=== PATIENT | female | born 1990 | race Caucasian/White ===

== ENCOUNTER 2025-09-29 16:02 | Outpatient (AMB) | payer OTHER, SELFPAY ==
--- NOTE | 2025-09-29 14:05 | A.OFFPC_ITS ---
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 Required: No Accompanied by: Self / Same As Patient Allergies No Known Allergies Allergy (Verified 09/29/25 14:05) Medication List - Last Reconciled 09/29/25 by RADHA Britt quetiapine 25 mg PO BEDTIME Tobacco use date assessed: 09/29/25 Dental Screening Dental Screen Date: 09/29/25 Did you have a dental visit in the last 12 months?: Yes Did you have a dental problem in the last 6 months where you did not have access to dental care?: No Was dental information given to patient?: Patient has dentist HPI HPI Comments History of Present Illness Details 35-year-old female with history of bipol ar disorder and PTSD presenting to the office today to establish care and for annual physical exam. Currently lives with her and 3 children. 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 Denies any alcohol use. No history of cigarette smoking. No illicit drug use or marijuana smoking. She does endorse that she is not exercising. Reports she has tried diets to lose weight but is not always clear on the correct foods to eat and is unsure of how to manage calorie deficit. Current BMI 35.1. Bipolar disorder/PTSD-follows with Psychiatry at [facility] as well as a counselor at [facility]. Currently on Seroquel 25 mg at bedtime. Was previously on an SSRI but was unable to tolerate side effects. Not on any mood stabilizers. Does feel like she is experiencing mild depressive episode arches resulting in decreased appetite. Not impacting everyday functioning. Denies any SI/HI. Concerns: Right lower extremity pain-reports she fell off a chair about 1 year ago while painting landing on the right buttock. Initially was experiencing pain in the right lower leg, the pain has worsened since and is now experiencing radiating pain from the right buttock down the anterior aspect of the right lower leg. Denies any paresthesias, saddle anesthesia, bowel/bladder dysfunction. She does report occasional instability in the right leg in feels as if she is going to fall but has not. She has been using Tylenol and ibuprofen without relief. Has gone to a chiropractor for 6 months without much relief ([facility] chiropract[facility]). Has not undergone physical therapy. Reports prior PCP ordered an x-ray of the right knee which was without any acute osseous abnormality. She has not had an MRI or any imaging of the lumbar spine. Chest pain- reports a constant sensation as if something is stuck in the left chest. No radiation. No retrosternal chest pressure. No associated symptoms. Does feel this may be related to anxiety. Did undergo Holter monitor [facility] which was normal. Recurrent UTI-ongoing since childhood. Reports UTIs about once monthly, most commonly following intercourse. Does not follow with Urology Health maintenance: FH breast cancer in sister age 53. Mammograms to start at age 40 FH colon cancer in father age 65. Colonoscopies to start at age 45 Goes for annual eye exams. No corrective lenses Follows with a dentist twice yearly Uses sun protection Reviewed past medical, surgical, family, social history ROS: General: No fevers, malaise, unintentional weight loss HEENT: No blurred vision, diplopia. No sore throat, nasal congestion, rhinorrhea, sinus pain, ear pain. No hearing loss Neck - no adenopathy Cardiovascular: No chest pain, palpitations, or leg edema Respiratory: No shortness of breath, wheezing, cough Breast: No pain, palpable lumps, nipple inversion GI: No dysphagia, odynophagia, globus sensation. No abdominal pain, nausea, vomiting, diarrhea, constipation, melena, hematochezia : No dysuria, hematuria, increased urinary frequency, decreased urinary output. 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 No AH/VH. No SI/HI Skin: No rashes or lesions EXAM: Constitutional - Awake and Alert, No apparent distress Eyes - PERRLA, EOMI. Anicteric Ears - external ears normal, canals clear, TMs intact and pearly sethi with good cone of light Nose- septum midline, nares clear, no sinus tenderness Mouth/throat- mucosa moist, tongue and uvula midline, no erythema/edema or tonsillar adenopathy. Neck-trachea midline, thyroid symmetric without palpable nodules, no adenopathy Cardiovascular - S1S2, RRR, No edema Respiratory - Normal lung expansion, Normal respiratory effort, No respiratory distress, CTA bilaterally Gastrointestinal - NT / ND; +BS; No rebound or guarding - No CVA tenderness Extremities - no calf tenderness bilaterally, no swelling Musculoskeletal - Normal inspection, normal ROM. Midline ttp at the level of L3- L4. No paraspinal ttp. Negative straight leg raises Skin - Warm/Dry, no concerning lesions Neurological - Alert & oriented x3, CN II-XII in tact, 5/5 strength BUE and BLE, 2+ patellar reflexes, sensation intact Psychological - Appropriate affect [facility] Medical History PTSD (post-traumatic stress disorder) Bipolar disorder Surgical History No pertinent past surgical history Family History Father Colon cancer, Onset Age: 65 Sister Breast cancer Social History Housing: House Patient Tobacco Use Status: Never used Tobacco e-Cigarette/Vaping Use: Never Used service: No Current occupational status: employed Current occupation: [employer] Questionnaire AUDIT C Alcohol Use Questionnaire (AUDIT-C) 1. How often do you have a drink containing alcohol?: Monthly or less 2. How many drinks containing alcohol do you have on a typical day when you are drinking?: 1 or 2 3. How often do you have six or more drinks on one occasion?: Never Total Score: 1 Physical exam (Primary Care) Vital Signs: Last Vital Signs Temp 97.5 F 09/29/25 16:09 Pulse 102 H 09/29/25 16:09 BP 100/58 L 09/29/25 16:09 Pulse Ox 95 09/29/25 16:09 Oxygen Delivery Method Room Air 09/29/25 16:09 BMI result Body Mass Index 35.1 Tobacco/Smoking Status: Tobacco use Status Tobacco use date assessed 09/29/25 09/29/25 16:11 Patient Tobacco Use Status Never used Tobacco 09/29/25 16:11 e-Cigarette/Vaping Use Never Used 09/29/25 16:11 Coding Level of Care Code New Pt Prev Care 18-39yr([id number] Diagnoses Routine medical exam Z00.00 Bipolar disorder F31.9 Lumbar radiculopathy M54.16 Recurrent UTI N39.0 Assessment & Plan Assessment & Plan (1) Routine medical exam: Code(s): Z00.00 - Encounter for general adult medical examination without abnormal findings Category: Medical Plan: 35-year-old female presenting for annual exam. Plan as below (2) Bipolar disorder: Code(s): F31.9 - Bipolar disorder, unspecified Category: Medical Plan: Mild depressive episode. Advised to contact psychiatrist for recommendations. Can continue quetiapine. She would likely benefit from a mood stabilizer but will defer to Psychiatry. Continue following with counseling. No alarm symptoms at this time (3) Lumbar radiculopathy: Code(s): M54.16 - Radiculopathy, lumbar region Category: Medical Plan: Longstanding since injury about 1 year ago. Has failed 6 months of palliative care coordinator. She would be interested in physical therapy and is referred. XR lumbar spine and MRI of the lumbar spine ordered. Can continue ibuprofen or Tylenol as well as ice as needed. Can also trial topical analgesics. 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 Referred to dietitian Follow up for annual physical exam, sooner if needed Orders: Orders PT Evaluation and Treatment Today M54.16 - Radiculopathy, lumbar region, Z00.00 - Encounter for general adult medical examination without abnormal findings MR lumbar spine wo con Today M54.16 - Radiculopathy, lumbar region, Z00.00 - Encounter for general adult medical examination without abnormal findings D Dimer High Sensitivity Today M79.604 - Pain in right leg, Z00.00 - Encounter for general adult medical examination without abnormal findings Complete Blood Count Auto Diff Today Z00.00 - Encounter for general adult medical examination without abnormal findings TSH reflex Free T4 Today Z00.00 - Encounter for general adult medical examination without abnormal findings XR lumbar spine 2-3V Today M54.16 - Radiculopathy, lumbar region Basic Metabolic Panel Today Z00.00 - Encounter for general adult medical examination without abnormal findings Lipid Panel Today Z00.00 - Encounter for general adult medical examination without abnormal findings Liver Panel Today Z00.00 - Encounter for general adult medical examination without abnormal findings Hemoglobin A1c Today Z00.00 - Encounter for general adult medical examination without abnormal findings Vitamin D 25-OH Total Today Z00.00 - Encounter for general adult medical examination without abnormal findings Referrals Termination Clerk Nutrition Referral E66.9 - Obesity, unspecified, Z00.00 - Encounter for general adult medical examination without abnormal findings, Z91.89 - Other specified personal risk factors, not elsewhere classified Urology Referral N39.0 - Urinary tract infection, site not specified, Z00.00 - Encounter for general adult medical examination without abnormal findings 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
[2025-09-29 16:09] VITALS: BP 100/58; PULSE 102; TEMP 36.4; O2SAT 95; BMI 35.1
--- OUTSIDE RECORDS SUMMARY | 2025-09-29 20:05 | XMS_ITS | Encounter Summary ---
Author Organization [facility] Address [address] [place] [address] Care Team Providers Care Boiler House Supervisor Name Role Phone Luba Barnes MD Primary Care Provider [phone] Encounter Details Date Type Department Care Team (Late st Contact Info) Description 09/23/2025 Results Follow-Up Internal Medicine - [address] [phone] Dario Crain NP [address] [place] [address] Social History Tobacco Use Types Packs/Day Years Used Date Smoking Tobacco: Never Smokeless Tobacco: Never Alcohol Use Standard Drinks/Week Comments Not Currently 0 (1 standard drink = 0.6 oz pur e alcohol) Comments No Sex and Gender Information Value Date Recorded Sex Assigned at Not on file Legal Sex Female 9:05 PM EST Gender Identity Not on file Sexual Orientation Not on file documented as of this encounter Progress Notes * Dario Crain NP - 09/23/2025 4:42 PM EDT She is to continue following up with cardiology for further recommendation. Referral has been already placed. documented in this encounter Plan of Treatment Upcoming Encounters Date Type Department Care Team (Late st Contact Info) Description 10/21/2025 1:00 PM EST Office Visit Orthopedic Surgery - [place] [address] [place] [phone] Shamir Doshi DPM [address] [place] [phone] 01/13/2026 9:00 AM EST Consult [facility] [place] - [place] [address] [facility] [address] [place] [phone] Deshawn Sanchez MD [address] [place], [place] [id number] 02/01/2026 3:00 PM EST Consult Bariatric Surgery - [place] [address] [facility] [address] [place] [address] Tono Comer MD [address] [place] [phone] 06/28/2026 9:00 AM EDT Office Visit Internal Medicine - [address] [phone] Luba Barnes MD [address] [place] [address] documented as of this encounter Visit Diagnoses Not on filedocumented in this encounter Additional Health Concerns Assessment Noted Time PHQ-9 Depression Total Score: 0 01/29/20 8:21 AM EST documented as of this encounter Care Teams Boiler House Supervisor Relationship Specialty Start Date End Date Luba Barnes MD [address] [place] [address] PCP - General Internal Medicine 02/03/25 documented as of this encounter
--- OUTSIDE RECORDS SUMMARY | 2025-09-29 20:05 | XMS_ITS | Clinical Summary ---
Author Organization [facility] Address [address] [place] [address] Phone Care Team Providers Care Wedding Coordinator Name Role Phone Luba Barnes MD Primary Care Provider [phone] Allergies Active Allergy Reactions Criticality Noted Date Comments Latex 01/29/2025 Other Reaction(s): Recurrent UTI - urinary tract infection Medications QUEtiapine (SEROquel) 25 mg tablet Take 1 tablet (25 mg total) by mouth 1 (one) time each day. 6 Active Junel FE 1.5/30, 28, 1.5 mg-30 mcg (21)/75 mg (7) per tablet TAKE 1 TABLET BY MOUTH EVERY DAY 84 tablet 1 5 Active meloxicam (MOBIC) 7.5 mg tablet Take 1 tablet (7.5 mg total) by mouth 1 (one) time each day for 14 days. 14 each 5 09/30/20 25 Active ondansetron ODT (ZOFRAN-ODT) 4 mg disintegrating tablet Dissolve 1 tablet (4 mg total) on top of the tongue every 8 (eight) hours if needed for nausea or vomiting for up to 5 days. 15 tablet 5 09/21/20 25 Active Problems Problem Noted Date Diagnosed Date COVID-19 09/30/2024 Class 2 obesity 09/30/2024 Fatigue 06/18/2024 Multiple joint pain 06/18/2024 Tremor of both hands 06/18/2024 Obesity with body mass index 30 or greater 10/19 Overview (09/30/2024): Problem added by Discern Expert Hyperlipidemia 04/07/2018 Bipolar disorder ([facility] V24, [facility] V28) 05/2011 Overview (09/30/2024): Follows with [facility]; therapist Vivian goes to therapy weekly Depression 05/07/2011 Overview (09/30/2024): 02/09/[address] [facility] ED for suicidal ideations; wants to cut herself; was seen by N; cleared by crisis 11/17/2018: most recent hospitalization was when she was 17 09/02/2019: Patient taking Seroquel 25 mg PO daily Results of Jefferson Depression Scale (EPDS) Question #10. In the past 7 days, the thought of harming myself has occurred to me: Never EDPS Score: 13 EDPS Interpretation (Maximum Score:30): 10 or greater: Possible Depression. 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 Encounters Date Type Department Care Team Description 09/23/2025 Results [facility] [address] [place], [place] [address] [phone] Dario Crain NP 09/16/2025 2:30 PM EDT Ancillary Procedure [facility] [address] [place] [address] Chest pain, unspecified type; Palpitation 09/16/2025 10:00 AM EDT Office Visit [facility] [address] [place] [address] John Jara PA Chronic right-sided low back pain with right-sided sciatica (Primary Dx) 09/16/2025 Telephone Internal Medicine - [address] [place] [address] Luba Barnes MD 09/14/2025 Telephone Obstetrics and Gynecology [address] [phone] Ester Whitney CNM 09/03/[address] [phone] Luba Barnes MD 08/27/2025 Telephone Internal [address] [phone] Luba Barnes MD 08/05/[address] [phone] Dario Crain NP 07/28/2025 8:30 AM EDT Office Visit Internal [address] [phone] Dario Crain NP Chest pain, unspecified type (Primary Dx); Palpitation 07/16/2025 Telephone Internal [address] [address] Luba Barnes MD 07/08/2025 8:40 AM EDT Office Visit Obstetrics and [address] [phone] Mel Cat, PA Breast pain, left (Primary Dx); Family history of breast cancer 07/06/2025 Telephone Adult Medicine [address] [phone] Luba Barnes MD from Last 3 Months Immunizations Immunization Administration Dates Next Due DTP 1989,1989,1989 DTaP (Infanrix) 6wks to less than 7yo 08/04/1994 APhD-ZVY-KFL (Pentacel) 2mo to less than 5yo 1989 HPV, Quadrivalent 04/17/2012,03/12/2008,01/08/20 08 Hepatitis A Adult (Havrix; V aqta) 19yo and older 02/04/2008 Hepatitis B (Midyale-Q-Xkeoc , Recombivax HB-Adult) 19yo and older 08/24/2009,07/13/2009 Hepatitis B Pediatric (Enger ix B; Recombivax HB) to less than 20 yo 02/04/2008 Influenza trivalent, 0.5mL, preservative free (Fluarix; FluLaval; Fluzone) ages 6mo and older (Afluria) 3 years and older 11/30/2015,02/04/2008 MMR, measles mumps and rubel la Live (Priorix; M-M-R II) 12mo and older 02/04/2008,12/26/1990 Meningococcal MCV4P 01/26/2008 OPV 08/04/1994, 1,1989,05/24 PPD Test 08/06/2018, 7,05/30/2016,08/22,08/10/2015 Tdap Tetanus diptheria acell ular pertussis (Boostrix; Adacel) 7yo and older 01/17/2018,04/28/2016,01/30/2008 Surgical History Surgery Date Site/Laterality Comments WISDOM TOOTH EXTRACTION PROCEDURE: HISTORICAL WISDOM TEETH EXTRACTION Medical History Medical History Date Comments PTSD (post-traumatic stress disorder) 06/03/2009 DX:PTSD (post-traumatic stress disorder); COMMENT: Also with some psychotic features as well as borderline intellectual functioning Bipolar disorder (CMS/HCC V2 4, CMS/HCC V28) 05/07/2011 DX:Bipolar disorder (HCC); C OMMENT: Follows with [facility]; therapist Vivian goes to therapy weekly Depression 05/07/2011 DX:Depression; C OMMENT: 02/09/[address] [facility] ED for suicidal ideations; wants to cut herself; was seen by N; cleared by crisis Hyperlipidemia 04/07/2018 DX:Hyperlipidemi a Family History Medical History Relation Name Comments Asthma Brother Diabetes Father hyperlipidemia, htn, [place], ?inflammatory arthritis Other: Parkinsons Disease Father ar thritis Other: unknown cancer Maternal Grandfather Other: malnourished Mother shreya s Other: autism Son Daniel Breast cancer Neg Hx Colon cancer Neg Hx Ovarian cancer Neg Hx Pancreatic cancer Neg Hx Prostate cancer Neg Hx Uterine cancer Neg Hx Relation Name Status Comments Brother Alive Daughter 1 Alive Daughter 2 Alive Father from heart tro ubles in his sleep Maternal Grandfather Maternal Grandmother Mother Alive Paternal Grandfather Paternal Grandmother Sister 1 Alive Sister 2 Alive Sister 3 Alive Sister 4 Alive Sister 5 Alive Son Daniel Alive Social History Tobacco Use Types Packs/Day Years Used Date Smoking Tobacco: Never Smokeless Tobacco: Never Tobacco Cessation:Counseling Given: Not Answered Alcohol Use Standard Drinks/Week Comments Not Currently 0 (1 standard drink = 0.6 oz pur e alcohol) Comments No Sex and Gender Information Value Date Recorded Sex Assigned at Not on file Legal Sex Female 9:05 PM EST Gender Identity Not on file Sexual Orientation Not on file Obstetrics History * This document contains information received from the source organization and may not represent a complete record from that organization. Para Term AB IAB SAB Ectopic Multiple Livin g Live Births 4 2 2 2 2 Date Outcome GA Total Labor Labor/2nd/3rd Weight Sex Type Anes PTL Dionna A1 A5 Name Clin 016 Term 40w 0d 3147 g (111 oz) M Vag-S pont Epidur al Livin g Complications:Hypertension Delivery Location:[facility] Comments:System Genera sandro. Please review and update details. 020 Term 39w 2d F Vag-S pont Livin g [place] Last Filed Vital Signs Vital Sign Reading Time Taken Comments Blood Pressure 93/67 09/16/2025 9:52 AM EDT Pulse 74 09/16/2025 9:52 AM EDT Temperature 36.7 C (98 F) 09/16/2025 9:52 AM EDT Respiratory Rate 15 07/08/2025 8:51 AM EDT Oxygen Saturation 98% 09/16/2025 9:52 AM EDT Inhaled Oxygen Concentration - - Weight 90.4 kg (199 lb 6.4 oz) 07/28/2025 8:37 A M EDT Height 167.6 cm (5' 6 ) 07/28/2025 8:37 AM EDT Body Mass Index 32.18 07/28/2025 8:37 AM EDT Plan of Treatment Upcoming Encounters Date Type Department Care Team (Late st Contact Info) Description 10/21/2025 1:00 PM EST Office Visit Orthopedic Surgery - [address] [facility] [address] [place] [phone] Shamir Doshi DPM [address] [place] [phone] 01/13/2026 9:00 AM EST Consult [facility] [place] [address] [facility] [address] [place] [phone] Deshawn Sanchez MD [address] [place], [place] [phone] 02/01/2026 3:00 PM EST Consult Bariatric Surgery - [place] [address] [facility] [address] [place] [phone] Tono Comer MD [address] [place] [phone] 06/28/2026 9:00 AM EDT Office Visit Internal Medicine - [facility] [address] [place], [place] [phone] Luba Barnes MD [address] [place] [address] Health Maintenance Due Date Last Done Comments Hepatitis C Screening 11/03/2022 COVID-19 Vaccine ( season) 2025 Influenza Vaccine (#1) 2025 , 11/30/2015, 02/04/2008 HIV Screening 12/02/2025 Postponed from 11/03/2022 (Patient Refused) Hepatitis A Vaccines (2 of 2 - 2-dose series) 12/02/2025 02/04/2008 Postponed from 08/06/2008 (Patient Refused) Hepatitis B Vaccines (4 of 4 - 4-dose series) 12/02/2025 08/24/2009, 07/13/2009, 02/04/2008 Postponed from 09/07/2009 (Patient Refused) Social Influencers of Health Screening 01/15/2026 01/15/2025 DTaP,Tdap,and Td Vaccines (8 - Td or Tdap) 01/17/2028 01/17/2018, 04/28/2016, 01/30/2008, Additional history exists Cholesterol Screening (Lipid Panel) 10/22/2029 10/22/2024, 12/26/2022 Cervical Cancer Screening: HPV 01/29/2030 01/29/2025 RSV Immunization Adult Patients (1 - 1-dose 75+ series) 2064 HIB Vaccines Aged Out 1989 No longer eligi ble based on patient's age to complete this topic IPV Vaccines Completed 08/04/1994, 06/03, 1989, Additional history exists Meningococcal ACWY Vaccine Completed 01/26/2008 MMR Vaccines Completed 02/04/2008, 12/26/1990 HPV Vaccines Completed 04/17/2012, 03/02, 01/08/2008 Depression Screening Completed 01/29/2025 Meningococcal B Vaccine Aged Out No l onger eligible based on patient's age to complete this topic Pneumococcal Vaccine: Pediatrics (0 to 5 Years) and At-Risk Patients (6 to 49 Years) Aged Out No longer eligible based on patient's age to complete this topic RSV Immunization Patients Under 20 months Aged Out No longer eligible based on patient's age to complete this topic Varicella Vaccines Aged Out No longer eligible based on patient's age to complete this topic Procedures Procedure Name Priority Date/Time Associated Diagnosis Comments CARDIAC HOLTER MONITOR (REPORT GENERATED IN HOUSE) Routine 09/16/2025 2:17 PM EDT Chest pain, unspecified type Palpitation HPV WITH REFLEX GENOTYPE Routine 01/29/2025 10:02 AM EST Encounter for annual physical examination excluding gynecological examination in a patient older than 17 years LIPID PANEL WITH REFLEX TO DIRECT LDL Routine 10/22/2024 5:01 PM EST Pain in joint, multiple sites Fatigue Screening examination for pulmonary tuberculosis from Last 3 Months or Most Recently Relevant to Health Maintenance Results * CARDIAC HOLTER MONITOR (REPORT GENERATED IN HOUSE) (09/16/2025 2:17 PM EDT) Anatomical Region Laterality Modality Cardiac Diagnost ic Narrative 09/22/2025 2:30 PM EDT [facility] DIAGNOSTIC TESTING DEPARTMENT [address] [facility], [address] [address] TEL: FAX: Type of test: 24 hour Holter Monitor Date of test: 09/16/25 Ordering provider: Dario Crain NP Reason for Test: Palpitations PVCA Form Stripper Findings: 1: The predominant rhythm was Normal Sinus Rhythm. 2: Rare PACs. One PVC. 3: No pauses noted. Longest R-R 1.5 sec. 4: Diary returned with multiple episodes of chest pain. EKG at those times showed Normal Sinus Rhythm. Impression: Normal sinus rhythm with no significant atrial or ventricular arrhythmias. No bradycardia or pauses. Episodes of chest pain were correlated to sinus rhythm. Dario Crain NP [facility] CARDIAC SERVICES PROCEDURES Final Result * HPV with reflex genotype (01/29/2025 10:02 AM EST) Pathologist [facility] [place] HPV Negative Negative LAB MICROBIOLOGY METHOD 02/01/2025 1:17 PM EST [facility] Brushing Cervix uteri structure / Unknown 01/29/2025 10:02 AM EST 02/01/2025 6:09 AM EST Martell STALLINGS LAB MOLECULAR DIAGNOSTICS ORD ERABLES Final Result [facility] [address] [place] [address], * (ABNORMAL) Lipid panel with reflex to direct LDL (10/22/2024 5:01 PM EST) Cholesterol 225(H) 0 - 200 mg/dL LAB CHEMISTRY METHOD 10/22/2024 6:19 PM EST [facility] Triglycerides 192(H) 0 - 150 mg/dL LAB CHEMISTRY METHOD 10/22/2024 6:19 PM [facility] HDL 46 >=40 mg/dL LAB CHEMISTRY METHOD 10/22/2024 6:19 PM [facility] LDL Calculated 141(H) 0 - 100 mg/dL LAB CHEMISTRY METHOD 10/22/2024 6:19 PM [facility] VLDL Cholesterol Fernando 38.4 mg/dL LAB CHEMISTRY METHOD 10/22/2024 6:19 PM [facility] Non HDL Chol. (LDL+VLDL) 179(H) <145 mg/dL LAB CHEMISTRY METHOD 10/22/2024 6:19 PM [facility] Chol/HDL Ratio 4.9(H) 0.0 - 4.4 LAB CHEMISTRY METHOD 10/22/2024 6:19 PM [facility] Blood Venous blood specimen / Unknown Venipuncture / Unknown 10/22/2024 5:01 PM EST 10/22/2024 5:01 PM EST us Audra Nuñez MD LAB BLOOD ORDERABLES Final Result [facility] [address] [place] [address], from Last 3 Months or Most Recently Relevant to Health Maintenance Insurance [facility] [place] [address] Care Teams Wedding Coordinator Relationship Specialty Start Date End Date Luba Barnes MD [address] [facility] [place] [address] PCP - General Internal Medicine 02/03/25
--- OUTSIDE RECORDS SUMMARY | 2025-09-29 20:05 | XMS_ITS | Data Portability ---
Author Organization [facility], ROSSY Watson PT Address [address] [place] [address] Care Team Providers Care Counter Attendant Name Role Phone [facility] Primary Care Provi esther Assessment No assessment recorded. Plan of Treatment Reminders Order Date Submit Date Provider Last Modified By Organization Details Last Modified Time Details Appointments None recorded. Lab None recorded. Referral physical therapist referral - VMO Strengtheni ng, Hip Abductor, Glute Med Strengtheni ng, Quad & Hamstring Stretching, Patella Mobilizatio n, Cabral Taping at your discretion. Dx: R knee chondromala jose de jesus patellae Teach HEP 2024 025 [email or web address] [facility], [address] [place], [address], 5 20:33:15 Procedures None recorded. Surgeries None recorded. Imaging MRI, knee, w/o contrast - R knee mri. ?LMT 2024 025 [facility] ([facility]), [address], [place], [address], 5 16:35:29 XR, knee, 4 or more view - 4v R knee. room 3 2024 025 jackie [facility] Office, [address], [place], [address], 5 14:21:44 Medication Orders None recorded. Patient TargetsNo targets recorded. Patient InstructionsNo instructions recorded. Reason for Referral Physical Therapist Referral for Chondromalacia of right patella VMO Strengthening, Hip Abductor, Glute Med Strengthening, Quad & Hamstring Stretching, Patella Mobilization, Cabral Taping at your discretion.Dx: R knee chondromalacia patellaeTeach HEP Referring Physician: Jorje Magana, Orthopedic Surgery, Encounter Date: 07/30/2025 Results Created Date Observation Date Name Description Value Unit Range Abnormal Flag Note LastModifiedBy Organization Detail LastModifiedTime 07/22/2007/22/2025 XR, knee, 4 or more view http:/ [email or web address] ?Encry pted=s hAaTro YD8dLq bEUv6g %2BXZw aYqtaq 0bqfl% 2Fg9IQ a4ajBk vP9nXo QUaueC m3YtLR FvZlgJ JJ8mAn HZtai3 8f9598 AC0Klb 36MUKO iKiQtr MwF INTERFACE [facility] [address], [place], [address], 07/22/2025 13:40:22 07/22/20 25 07/22/2025 XR, knee, 4 or more view [email or web address] ?Encry pted=s hAaTro YD8dLq bEUv6g %2BXZw aYqtaq 0bqfl% 2Fg9IQ a4ajBk vP9nXo QUaueC m3YtLR FvZl JJ8mAn HZtai3 5r8428 AC0Klb 36MUKO iKiQtr MwF INTERFACE [facility] [address] [facility] [address], [place], [address], 07/22/2025 13:40:23 07/28/20 25 07/27/2025 MRI, knee, w/o contr ast [facility] Access ion Number : [id number] Edwige clayton Name: Renée Marcha anel Record Number : [id number] Date of : 1989 Date of Exam: 2024 Referr ing Physic yunier: [facility] [address], [address] [place] [address] Exam: MR Knee (C-) CPT 39223 - Right Room Descri ption: [facility] 3.0T Histor y: Fell out of chair approx imatel y 6 months ago, one week ago was not able to get up from the floor. Report s pain in the distal latera l and radiat es to the strong. Techni que: MRI of the right knee was perfor med withou t intrav enous contra st. Compar oscar: Knee radiog raph 025. Findin gs: Mildly degrad ed exam due to motion . Joint effusi on: No joint effusi on is presen t. Menisc i: The medial and latera l menisc us both appear intact . No menisc al tear is seen. Tendon s and ligame nts: ACL and PCL are intact . MCL, LCL comple x, and poplit eus insert ion are intact . The extens or mechan ism is intact .. Articu lar cartil age: Mild surfac e fibril lation and signal hetero geneit y of the articu lar cartil age along the latera l patell ar facet. Medial and latera l tibiof emoral articu lar cartil age is well-m aintai noemy. Bone: Bone marrow signal is within normal limits . No eviden ce of fractu re or bone marrow contus ion. Mild edema signal in the prepat ellar soft tissue s. Impres kaye: Mild patell ar chondr omalac ia and prepat ellar soft tissue edema signal No eviden ce of menisc al tear or ligame ntous injury I, Conrado Kaur rd, MD, have review ed the images and report and concur with the reside nt, Suri Galeana t's, findin gs. Electr onical ly Signed By: Conrado Kaur rd, MD [email or web address] [facility] ([facility]) [address], [place], [address], 07/29/2025 08:36:28 Result Notes Documentation Provider Name and Address Organization Details Recorded Time Xr, Knee, 4 Or More View : [email or web address] Encrypted=igMgUyoEO0gYqsR Uv6g%5UCMalTjyiy3aqbb%2Fg 4TKo5foNomA1tQyPNgmzYg2Ty BBDfVxvUEM3mOfFWviu72e326 3JY2Imw29GRGFvPsRnrSmW Not Available Formerly [facility] 07/22/2025 13:40:22 Xr, Knee, 4 Or More View : [email or web address] Encrypted=sgBpClqZP5tQugK Uv6g%9HZNcxKiwzl9mzrd%2Fg 0FBx2ahDeeH3pAwBXbnzAv7Kk KELrMcnBDZ1qSaEXtjl53f686 4TN0Fzi21TNXQoBbJvvFiM Not Available [facility], [facility] 07/22/2025 13:40:23 Mri, Knee, W/o Contrast : [facility] Accession Number: [id number] Patient Name: Avelina March Date of : 1990 Date of Exam: 07-27-2025 Referring Physician: Jorje Magana [facility] ([facility]) [address] [place] [address], [address] [place] [address] Exam: MR Knee (C-) CPT 69636 - Right Room Description: [facility] 3.0T History: Fell out of chair approximately 6 months ago, one week ago was not able to get up from the floor. Reports pain in the distal lateral and radiates to the strong. Technique: MRI of the right knee was performed without intravenous contrast. Comparison: Knee radiograph 07/18/2025. Findings: Mildly degraded exam due to motion. Joint effusion: No joint effusion is present. Menisci: The medial and lateral meniscus both appear intact. No meniscal tear is seen. Tendons and ligaments: ACL and PCL are intact. MCL, LCL complex, and popliteus insertion are intact. The extensor mechanism is intact.. Articular cartilage: Mild surface fibrillation and signal heterogeneity of the articular cartilage along the lateral patellar facet. Medial and lateral tibiofemoral articular cartilage is well-maintained. Bone: Bone marrow signal is within normal limits. No evidence of fracture or bone marrow contusion. Mild edema signal in the prepatellar soft tissues. Impression: Mild patellar chondromalacia and prepatellar soft tissue edema signal No evidence of meniscal tear or ligamentous injury I, Conrado Roberts MD, have reviewed the images and report and concur with the resident, Suri Carr, findings. Electronically Signed By: Conrado Magana PA-C [address] [facility] [address], [place], [address], [facility] 07/29/2025 08:36:28 Medical Equipment None Reported. Medications Name Sig Start Date Stop Date Status Note LastModified by Organization Details LastModified Time quetiapine 25 mg tablet TAKE 1 TABLET BY MOUTH EVERYDAY AT BEDTIME active Not Available Not Available No t Available neomycin-darrel ymyxin-hydro елена 3.5 mg/mL-10,000 unit/mL-1 % ear solution PUT 3 DROPS INTO THE LEFT EAR 3 TIMES PER DAY FOR 7 DAYS active Not Available Not Available No t Available methylpredni solone 4 mg tablets in a dose pack TAKE 6 TABLETS ON DAY 1 DIRECTED ON PACKAGE AND DECREASE BY 1 TAB EACH DAY FOR A TOTAL OF 6 DAYS active Not Available Not Available No t Available sertraline 50 mg tablet TAKE 1 TABLET BY MOUTH EVERY DAY active Not Available Not Available No t Available Vitamin 27 mg iron-0.8 mg tablet TAKE 1 TABLET BY MOUTH EVERY DAY active Not Available Not Available No t Available FE 1.5/30 (28) 1.5 mg-30 mcg (21)/75 mg (7) tablet TAKE 1 TABLET BY MOUTH EVERY DAY active Not Available Not Available No t Available nitrofuranto in monohydrate/ macrocrystal s 100 mg capsule TAKE 1 CAPSULE (ORAL) 2 TIMES PER DAY FOR 10 DAYS MUST ADMINISTER WITH A MEAL/FOOD active Not Available Not Available No t Available Vitals Date Recorded Body height Body mass index (BMI) Body weight Provider Name and Address Organization Details Last Updated DateTime 07/22/2025 167.64 cm 31.2 kg/m2 02814.33 g Lise Rowland [facility] 07/22/2025 13:26:44 Date Recorded Body height Body mass index (BMI) Body weight Provider Name and Address Organization Details Last Updated DateTime 07/30/2025 167.64 cm 31.2 kg/m2 23944.33 g Lise Gill [place] [facility] 07/30/2025 09:06:30 Social History None recorded. Functional Status None recorded. Mental Status None recorded. Family History Nothing Reported. Medical History No medical history recorded. Gynecological HistoryNo gynecological history recorded. Obstetrics History GPAL:G 0 P 0 0 0 0 Past Encounters Encounter ID Performer Location Encounter Start Date Encounter Closed Date Diagnosis/Indication Diagnosis SNOMED-CT Code Diagnosis ICD10 Code Diagnosis IMO Codes Diagnosis Note [id number] [facility] [address] [place] [address] 07/22/2025 13:15:34 07/29/2025 11:24:08 Pain of right knee joint 0032444625 75780 M25.561 [id number] Derangemen t of right knee 0638430258 9790148 M23.91 [id number] [facility] [address] [place] [address] 07/30/2025 08:57:20 08/11/2025 12:06:09 Chondromalacia of right patella [id number] M22.41 [id number] Health Concerns Section Related Observation LastModified by Organization Detai ls LastModified Time None Recorded Concern Status LastModified by Organization Details LastModified Time None Recorded Advance Directives Directive None Recorded Payers Insurance Date Sequence Insurance Name Policy Number Policy Jaquez Covered Member ID Jaquez Member ID Guarantor Name 08/11/2025 1 [facility] (MEDICAID HMO) LUDWIN Avelina March [id number] Avelina March Notes Date Note Type Note Provider Name and Address Organization Details Recorded Time 07/22/2025 text/html I am seeing the patient today under the supervision of Dr. Wheeler who was available but who did not see the patient.HPI: Avelina presents. Examination of her right knee. 35-year-old female, who last Saturday while putting her child down onto her mattress. Had difficult time standing back up with experiencing the right knee locking and not being able to fully extend the knee. She was seen at [facility], which gave her crutches and she is gradually seen improvements. She still has difficulty fully extending the knee without significant pain. Denies any significant swelling. Denies any prior history of injury.Past family, medical, social history and review of systems has been reviewed, updated and signed by me and is located in the patient s chart.PHYSICAL EXAMINATION: The patient is well appearing and in no apparent distress. Alert and oriented x3. Gait is symmetric.Left knee: ROM is full, stability intact both anterior, posterior, and varus/valgus stress at both 0 and 30 degrees of flexion. No meniscal tenderness. Negative Saige's maneuver. No crepitus,no effusion, 5/5 strength.Right knee: 10-120 passively and actively. Negative Abrahan no laxity to varus/valgus stress at both 0 and 30 degrees of flexion. Diffuse lateral joint line tenderness. Equivocal lateral Saige's maneuver. No crepitus,. No effusion, 5/5 strength.Peripheral, vascular, lymphatic examination, skin, neurological, coordination, reflexes, sensation are within normal limits.X-RAY REPORT: X-rays were ordered, obtained and reviewed today at [facility]. 3 views of the knee were obtained today and are without evidence of acute pathology or fracture.IMPRESSION: Suspect lateral meniscal tear, possibly discoid in originPLAN:, Reviewed and discussed at length. Symptoms are appropriate care. An MRI will be obtained at this time to evaluate the extent of injury. We did discuss treatment options, both conservatively and surgical. Based upon findings. We will see her back to discuss MRI results. Jorje Magana PA-C [address] [facility] [address], [place], [address], [facility] 07/22/2025 14:21:11 07/30/2025 text/html I am seeing the patient today under the supervision of Dr. Denson who was available but who did not see the patient.Avelina returns in follow-up after obtaining MRI of the right knee. She had difficulty fully extending the knee with concerns for possible lateral meniscal injury. MRI interpreted independently and reviewed at length today only demonstrates some mild to moderate chondral fraying and disruption on the retropatellar surface. No other intra-articular pathology noted. She reports improvements with the improved range of motion with minimal if any pain present.Past family, medical, social history and review of systems has been reviewed, updated and is located in the patient s chart.Examination: No effusion, full range of motion today, slight retropatellar crepitus, no joint tenderness with negative meniscal or ligamentous testing todayImpression: Acute irritation of right knee chondromalacia patellaPlan: Reviewed and discussed MRI findings in detail as well as conservative care to include physical therapy, weight loss, oral NSAIDs, and activity modification. She will follow-up with us as needed. Jorje Magana PA-C [address] [facility] [address], [place], [address], [place] [facility] 07/30/2025 09:16:22 OBGyn Episode No OBEpisode recorded.
--- OUTSIDE RECORDS SUMMARY | 2025-09-29 20:05 | XMS_ITS ---
Author Name [facility] Organization Unknown Care Team Organization Name Specialty Phone Email Start Date End Da te [facility] Scott Marcos DO Primary Care 02/06/202307/02 [facility] NULL Primary Care 10/09/2022 07/20/2024
== END 2025-09-29 16:54 | disposition home or self-care (01) ==
PROVIDERS: PCP Physician Assistant; Visit Provider Physician Assistant
DX: Z00.00 Encounter for general adult medical examination without abnormal findings (principal); F31.9 Bipolar disorder, unspecified; M54.16 Radiculopathy, lumbar region; N39.0 Urinary tract infection, site not specified

== ENCOUNTER → 2025-09-29 16:02 | Outpatient (BNVA) | payer OTHER, SELFPAY | PROVIDERS: PCP Physician Assistant; Visit Provider Physician Assistant | DX: Z00.00 Encounter for general adult medical examination without abnormal findings (principal); F31.9 Bipolar disorder, unspecified; N39.0 Urinary tract infection, site not specified; M54.16 Radiculopathy, lumbar region | CPT/HCPCS: 99385 ==

== ENCOUNTER 2025-09-30 08:11 | Outpatient (REF) | payer OTHER, SELFPAY ==
--- OUTSIDE RECORDS SUMMARY | 2025-09-30 08:39 | XMS_ITS | Encounter Summary ---
Author Organization [facility] Address [address] [place] [address] Care Team Providers Care Fruit Picker Machine Operator Name Role Phone Luba Barnes MD Primary Care Provider [phone] Reason for Visit * Reason Onset Date Comments Appointment 09/23/2025 Lmtcb on voice m ail , please transfer call to ext : [phone] thanks. BANUELOS Encounter Details Date Type Department Care Team (Late st Contact Info) Description 09/23/2025 Results Follow-Up Internal Medicine - [address] [address] Dario Crain NP [address] [place] [address] Social History Tobacco Use Types Packs/Day Years [...] PM EST Office Visit Orthopedic Surgery - [place] [address] [facility] [address] [place] [address] Shamir Doshi DPM [address] [place] [phone] 01/13/2026 9:00 AM EST Consult [facility] [place] [address] [facility] [address] [place] [phone] Deshawn Sanchez MD [address] [place], [place] [phone] 02/01/2026 3:00 PM EST Consult Bariatric Surgery - [place] [address] [facility] [address] [place] [phone] Tono Comer MD [address] [place] [phone] 06/28/2026 9:00 AM EDT Office Visit Internal Medicine - [facility] [address] [place], [place] [phone] Luba Barnes MD [address] [place], [place] documented as of this encounter Visit Diagnoses Not on filedocumented in this encounter Additional Health Concerns Assessment Noted Time PHQ-9 Depression Total Score: 0 01/29/20 8:21 AM EST documented as of this encounter Care Teams Fruit Picker Machine Operator Relationship Specialty Start Date End Date Luba Barnes MD [address] [place], [place] PCP - General Internal Medicine 02/03/25 documented as of this encounter
--- OUTSIDE RECORDS SUMMARY | 2025-09-30 08:40 | XMS_ITS | Clinical Summary ---
Author Organization [facility] Address [address] [place] [address] Phone Care Team Providers Care Hostess Party Sales Representative Name Role Phone Luba Barnes MD Primary Care Provider [phone] Allergies Active Allergy Reactions Criticality Noted Date [...] by Discern Expert Hyperlipidemia 04/07/2018 Bipolar disorder ([facility] V24, [facility] V28) 05/2011 Overview (09/30/2024): Follows with [facility]; therapist Vivian goes to therapy weekly Depression 05/07/2011 Overview (09/30/2024): 02/09/12 Was at [facility] ED for suicidal ideations; wants to cut herself; was seen by N; cleared by crisis 11/17/2018: most recent hospitalization was when she was 17 09/02/2019: Patient taking Seroquel 25 mg PO daily Results of [place] Depression Scale (EPDS) Question #10. In the past 7 days, the thought of harming myself has occurred to me: Never EDPS Score: 13 EDPS Interpretation (Maximum Score:30): 10 or greater: Possible Depression. 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 Encounters Date Type Department Care Team Description 09/23/2025 Results [facility] [address] [place], [place] [address] [phone] Dario Crain NP 09/16/2025 2:30 PM EDT Ancillary Procedure [facility] [address] [place] [address] Chest pain, unspecified type; Palpitation 09/16/2025 10:00 AM EDT Office Visit Walk-In Clinic - [address] [place] [address] John Jara PA Chronic right-sided low back pain with right-sided sciatica (Primary Dx) 09/16/2025 Telephone Internal Medicine - [address] [place] [address] Luba Barnes MD 09/14/2025 Telephone Obstetrics and Gynecology [address] [phone] Ester Whitney CNM 09/03/[address] [address] Luba Barnes MD 08/27/2025 Telephone Internal [address] [phone] Luba Barnes MD 08/05/[address] [address] Dario Crain NP 07/28/2025 8:30 AM EDT Office Visit Internal [address] [address] Dario Crain NP Chest pain, unspecified type (Primary Dx); Palpitation 07/16/2025 Telephone Internal [address] [address] Luba Barnes MD 07/08/2025 8:40 AM EDT Office Visit Obstetrics and [address] [phone] Mel Cat, PA Breast pain, left (Primary Dx); Family history of breast cancer 07/06/2025 Telephone Adult Medicine [address] [phone] Luba Barnes MD from Last 3 Months Immunizations Immunization Administration Dates Next Due DTP 1989,1989,1989 DTaP (Infanrix) 6wks to less than 7yo 08/04/1994 UXwB-CUW-PCL (Pentacel) 2mo to less than 5yo 1989 HPV, Quadrivalent 04/17/2012,03/12/2008,01/08/20 08 Hepatitis A Adult (Havrix; V aqta) 19yo and older 02/04/2008 Hepatitis B (Zuqnolp-T-Sulky , Recombivax HB-Adult) 19yo and older 08/24/2009,07/13/2009 [...] DX:Bipolar disorder (HCC); C OMMENT: Follows with [facility]; therapist Vivian goes to therapy weekly Depression 05/07/2011 DX:Depression; C OMMENT: 02/09/12 Was at [facility] ED for suicidal ideations; wants to cut herself; was seen by N; cleared by crisis Hyperlipidemia 04/07/2018 DX:Hyperlipidemi a Family History Medical History Relation Name Comments Asthma Brother Diabetes Father hyperlipidemia, htn, [place], ?inflammatory arthritis Other: Parkinsons Disease Father ar [...] 2d F Vag-S pont Livin g Delivery Location:[facility] Last Filed Vital Signs Vital Sign Reading [...] PM EST Office Visit Orthopedic Surgery - [place] [address] [facility] [address] [place] [phone] Shamir Doshi DPM [address] [place] [phone] 01/13/2026 9:00 AM EST Consult [facility] [place] [address] [facility] [address] [place] [phone] Deshawn Sanchez MD [address] [place], [place] [phone] 02/01/2026 3:00 PM EST Consult Bariatric Surgery - [place] [address] [facility] [address] [place] [phone] Tono Comer MD [address] [place] [phone] 06/28/2026 9:00 AM EDT Office Visit Internal Medicine - [facility] [address] [place], [place] [phone] Luba Barnes MD [address] [place] [address] Health Maintenance Due Date Last Done Comments [...] Diagnost ic Narrative 09/22/2025 2:30 PM EDT [facility] DI[facility]STIC [facility]ING DEPARTMENT [address] [facility], [address] [address] TEL: FAX: Type of test: 24 hour Holter Monitor Date of test: 09/16/25 Ordering provider: Dario Crain NP Reason for Test: Palpitations [employer] Commercial Hvac Technician Findings: 1: The predominant rhythm was Normal [...] reflex genotype (01/29/2025 10:02 AM EST) Pathologist [facility] HPV Negative Negative LAB MICROBIOLOGY METHOD 02/01/2025 1:17 PM EST [facility] Brushing Cervix uteri structure / Unknown 01/29/2025 10:02 AM EST 02/01/2025 6:09 AM EST Martell STALLINGS LAB MOLECULAR DIAGNOSTICS ORD ERABLES Final Result [facility] [address] [place] [address], * (ABNORMAL) Lipid panel with reflex to direct LDL (10/22/2024 5:01 PM EST) Cholesterol 225(H) 0 - 200 mg/dL LAB CHEMISTRY METHOD 10/22/2024 6:19 PM EST [facility] Triglycerides 192(H) 0 - 150 mg/dL LAB CHEMISTRY METHOD 10/22/2024 6:19 PM [facility] HDL 46 >=40 mg/dL LAB CHEMISTRY METHOD 10/22/2024 6:19 PM [facility] LDL Calculated 141(H) 0 - 100 mg/dL LAB CHEMISTRY METHOD 10/22/2024 6:19 PM [facility] VLDL Cholesterol Fernando 38.4 mg/dL LAB CHEMISTRY METHOD 10/22/2024 6:19 PM [facility] Non HDL Chol. (LDL+VLDL) 179(H) <145 mg/dL LAB CHEMISTRY METHOD 10/22/2024 6:19 PM [facility] Chol/HDL Ratio 4.9(H) 0.0 - 4.4 LAB CHEMISTRY METHOD 10/22/2024 6:19 PM [facility] Blood Venous blood specimen / Unknown Venipuncture / Unknown 10/22/2024 5:01 PM EST 10/22/2024 5:01 PM EST us Audra Nuñez MD LAB BLOOD ORDERABLES Final Result [facility] [address] [place] [address], from Last 3 Months or Most Recently Relevant to Health Maintenance Insurance [facility] Care Teams Hostess Party Sales Representative Relationship Specialty Start Date End Date Luba Barnes MD [address] [facility] [place] [address] PCP - General Internal Medicine 02/03/25
[2025-09-30 10:17] LABS: MANUAL DIFF FLAG NO
[2025-09-30 10:24] LABS: Hematocrit 41.8 % (37.0-47.0); Hemoglobin 14.0 g/dl (12.0-16.0); Imm Gran Abs Auto 0.04 X10*3/uL (0.00-0.03); Imm Gran Pct Auto 0.6 % (0.0-0.4); Lymphocytes Absolute Auto 2.1 X10*3/uL (1.2-4.9); Mean Corpuscular HGB Conc 33.5 g/dl (31.0-35.0); Mean Corpuscular Hemoglobin 29.3 pg (27.0-33.0); Mean Corpuscular Volume 87.4 fL (80.0-98.0); NRBC Abs Auto 0.000 X10*3/uL (0.0-0.012); NRBC Pct Auto 0.0 /100WBC (0.0-0.2); Platelet Count 196 X10*3/uL (160-400); Red Blood Count 4.78 X10*6/uL (4.20-5.50); White Blood Count 7.1 X10*3/uL (4.8-10.8)
[2025-09-30 10:50] LABS: D Dimer High Sensitivity 248 NG/ML
[2025-09-30 12:05] LABS: Alanine Aminotransferase 43 U/L (0-31); Albumin Level 4.4 g/dL (3.5-5.0); Alkaline Phosphatase 68 U/L (39-117); Anion Gap 9 (12-20); Aspartate Amino Transferase 34 U/L (5-31); Blood Urea Nitrogen 11 mg/dL (9-16); Calcium 9.0 mg/dL (8.4-10.2); Carbon Dioxide 25 mmol/L (22-29); Chloride 110 mmol/L (96-108); Cholesterol 228 mg/dL (<200); Estimated Glomerular Filt Rate > 60; HDL Cholesterol 55 mg/dL (>40); Potassium 4.1 mmol/L (3.3-5.1); Sodium 140 mmol/L (135-145); Total Protein 6.5 g/dL (6.5-8.0); Triglycerides 162 mg/dL (<150)
== END 2025-09-30 08:12 | disposition home or self-care (01) ==
LOC: HO.10HDL 08:11
PROVIDERS: Visit Provider Physician Assistant
DX: Z00.00 Encounter for general adult medical examination without abnormal findings (principal); M79.604 Pain in right leg
CPT/HCPCS: 36415; 80048; 80061; 80076; 82306; 83036; 84443; 85025; 85379

== ENCOUNTER 2025-10-06 08:32 | Outpatient (REF) | payer OTHER, SELFPAY ==
--- OUTSIDE RECORDS SUMMARY | 2025-10-06 08:44 | XMS_ITS | Encounter Summary ---
Author Organization [facility] Address [address] [place] [address] Care Team Providers Care Wafer Cleaner Name Role Phone Luba Barnes MD Primary Care Provider [phone] Reason for Visit * Reason Onset Date Comments Appointment 09/23/2025 Lmtcb on voice m ail , please transfer call to ext : [phone] thanks. BANUELOS Encounter Details Date Type Department Care Team (Late st Contact Info) Description 09/23/2025 Results Follow-Up Internal Medicine - [address] [address] Dario Crain NP [address] [place] [address] Social History Tobacco Use Types Packs/Day Years [...] PM EST Office Visit Orthopedic Surgery - [place] 250 175 [facility] 250 [place] [address] Shamir Doshi DPM 230 [place] [phone] 01/13/2026 9:00 AM EST Consult [facility] [place] 175 [facility] 150 [place] [phone] Deshawn Sanchez MD 175 [place], [place] [phone] 02/01/2026 3:00 PM EST Consult Bariatric Surgery - [place] 175 [facility] 120 [place] [phone] Tono Comer MD 230 [place] [phone] 06/28/2026 9:00 AM EDT Office Visit Internal Medicine - [facility] [address] [place], [place] [phone] Luba Barnes MD [address] [place], [place] documented as of this encounter Visit Diagnoses Not on filedocumented in this encounter Additional Health Concerns Assessment Noted Time PHQ-9 Depression Total Score: 0 01/29/20 8:21 AM EST documented as of this encounter Care Teams Wafer Cleaner Relationship Specialty Start Date End Date Luba Barnes MD [address] [place], [place] PCP - General Internal Medicine 02/03/25 documented as of this encounter
--- OUTSIDE RECORDS SUMMARY | 2025-10-06 08:45 | XMS_ITS | Clinical Summary ---
Author Organization 230 [facility] Address [address] [place] [address] Phone Care Team Providers Care Addiction Psychiatrist Name Role Phone Luba Barnes MD Primary Care Provider [phone] Allergies Active Allergy Reactions Criticality Noted Date [...] 14 days. 14 each 5 09/30/20 25 ondansetron ODT (ZOFRAN-ODT) 4 mg disintegrating tablet [...] by Discern Expert Hyperlipidemia 04/07/2018 Bipolar disorder ([facility] V24, [facility] V28) 05/2011 Overview (09/30/2024): Follows with [facility]; therapist Vivian goes to therapy weekly Depression 05/07/2011 Overview (09/30/2024): 02/09/12 Was at [facility] ED for suicidal ideations; wants to cut herself; was seen by N; cleared by crisis 11/17/2018: most recent hospitalization was when she was 17 09/02/2019: Patient taking Seroquel 25 mg PO daily Results of Zalma Depression Scale (EPDS) Question #10. In the past 7 days, the thought of harming myself has occurred to me: Never EDPS Score: 13 EDPS Interpretation (Maximum Score:30): 10 or greater: Possible Depression. 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 Encounters Date Type Department Care Team Description 09/30/2025 [facility] [address] [place] [phone] Luba Barnes MD 09/23/2025 Results Follow-Up Internal Medicine - [place] 305 [facility] [place], [place] [phone] Dario Crain NP 09/16/2025 2:30 PM EDT Ancillary Procedure [facility] [address] [place] [phone] Chest pain, unspecified type; Palpitation 09/16/2025 10:00 AM EDT [facility] [address] [phone] John Jara PA Chronic right-sided low back pain with right-sided sciatica (Primary Dx) 09/16/2025 Telephone Internal Medicine [address] [phone] Luba Barnes MD 09/14/2025 Telephone Obstetrics and Gynecology [address] [phone] Ester Whitney CNM 09/03/2025 Telephone Internal Medicine [address] [phone] Luba Barnes MD 08/27/2025 Telephone Internal [address] [phone] Luba Barnes MD 08/05/2025 Telephone Internal [address] [phone] Dario Crain NP 07/28/2025 8:30 AM EDT Office Visit Internal [address] [phone] Dario Crain NP Chest pain, unspecified type (Primary Dx); Palpitation 07/16/2025 Telephone Internal [address] [phone] Luba Barnes MD 07/08/2025 8:40 AM EDT Office Visit Obstetrics and [address] [phone] Mel Cat PA Breast pain, left (Primary Dx); Family history of breast cancer 07/06/2025 Telephone Adult Medicine [address] [phone] Luba Barnes MD from Last 3 Months Immunizations Immunization Administration Dates Next Due DTP 1989,1989,1989 DTaP (Infanrix) 6wks to less than 7yo 08/04/1994 FLjZ-PKZ-TKQ (Pentacel) 2mo to less than 5yo 1989 HPV, Quadrivalent 04/17/2012,03/12/2008,01/08/20 08 Hepatitis A Adult (Havrix; V aqta) 19yo and older 02/04/2008 Hepatitis B (Ckldvbt-R-Awzyg , Recombivax HB-Adult) 19yo and older 08/24/2009,07/13/2009 [...] DX:Bipolar disorder (HCC); C OMMENT: Follows with [facility]; therapist Vivian goes to therapy weekly Depression 05/07/2011 DX:Depression; C OMMENT: 02/09/12 Was at [facility] ED for suicidal ideations; wants to cut herself; was seen by N; cleared by crisis Hyperlipidemia 04/07/2018 DX:Hyperlipidemi a Family History Medical History Relation Name Comments Asthma Brother Diabetes Father hyperlipidemia, htn, [place], ?inflammatory arthritis Other: Parkinsons Disease Father ar thritis Other: unknown cancer Maternal Grandfather Other: malnourished Mother shreya brown Other: autism Son Daniel Breast cancer Neg Hx Colon cancer Neg Hx Ovarian cancer Neg Hx Pancreatic cancer Neg Hx Prostate cancer Neg Hx Uterine cancer Neg Hx Relation Name Status Comments Brother Alive Daughter 1 Alive Daughter 2 Alive Father from heart tro ubaniceto in his sleep Maternal Grandfather Maternal Grandmother [...] pont Epidur al Livin g Complications:Hypertension Delivery Location:[facility] Comments:System Genera sandro. Please review and update details. 020 Term 39w 2d F Vag-S pont Livin g Delivery Location:[facility] Last Filed Vital Signs Vital Sign Reading [...] 1:00 PM EST Office Visit Orthopedic Surgery [facility] 250 175 [facility] 250 [place] [phone] Shamir Doshi DPM 230 [place] [phone] 01/13/2026 9:00 AM EST Consult [facility] [place] [facility] [place] 175 [facility] 150 [place] [phone] Deshawn Sanchez MD 175 [place], [place] [phone] 02/01/2026 3:00 PM EST Consult Bariatric Surgery - [place] 175 [facility] 120 [place] [phone] Tono Comer MD 230 [place] [phone] 06/28/2026 9:00 AM EDT Office Visit Internal Medicine - [facility] 305 [place] [address] Luba Barnes MD [address] [place] [address] Health Maintenance Due Date Last Done Comments [...] Diagnost ic Narrative 09/22/2025 2:30 PM EDT [facility] DI[facility]NOSTIC TESTING DEPARTMENT 300 [facility], [address] [address] TEL: FAX: Type of test: 24 hour Holter Monitor Date of test: 09/16/25 Ordering provider: Dario Crain NP Reason for Test: Palpitations PVCA Theatrical Trouper Findings: 1: The predominant rhythm was Normal [...] reflex genotype (01/29/2025 10:02 AM EST) Pathologist [facility] HPV Negative Negative LAB MICROBIOLOGY METHOD 02/01/2025 1:17 PM EST [facility] Brushing Cervix uteri structure / Unknown 01/29/2025 10:02 AM EST 02/01/2025 6:09 AM EST [facility] MOLECULAR DIAGNOSTICS ORD ERABLES Final Result [facility] [address] [place] [address], * (ABNORMAL) Lipid panel with reflex to direct LDL (10/22/2024 5:01 PM EST) Pathologist [facility] Cholesterol 225(H) 0 - 200 mg/dL LAB CHEMISTRY METHOD 10/22/2024 6:19 PM [facility] Triglycerides 192(H) 0 - 150 mg/dL LAB CHEMISTRY METHOD 10/22/2024 6:19 PM [facility] HDL 46 >=40 mg/dL LAB CHEMISTRY METHOD 10/22/2024 6:19 PM [facility] LDL Calculated 141(H) 0 - 100 mg/dL LAB CHEMISTRY METHOD 10/22/2024 6:19 PM [facility] VLDL Cholesterol Fernando 38.4 mg/dL LAB CHEMISTRY METHOD 10/22/2024 6:19 PM [facility] Non HDL Chol. (LDL+VLDL) 179(H) <145 mg/dL LAB CHEMISTRY METHOD 10/22/2024 6:19 PM [facility] Chol/HDL Ratio 4.9(H) 0.0 - 4.4 LAB CHEMISTRY METHOD 10/22/2024 6:19 PM [facility] Blood Venous blood specimen / Unknown Venipuncture / Unknown 10/22/2024 5:01 PM EST 10/22/2024 5:01 PM EST us Audra Nuñez MD LAB BLOOD ORDERABLES Final Result [facility] [address] [place] [address], from Last 3 Months or Most Recently Relevant to Health Maintenance Insurance [facility] Care Teams Addiction Psychiatrist Relationship Specialty Start Date End Date Luba Barnes MD 305 [facility] [place] [address] PCP - General Internal Medicine 02/03/25
[2025-10-09 17:48] LABS: TS Negative Control Passed; TS Panel A 0; TS Panel B 1; TS Positive Control Passed; TSpotTB Negative (Negative)
== END 2025-10-06 08:33 | disposition home or self-care (01) ==
LOC: HO.10HDL 08:32
PROVIDERS: Visit Provider Physician Assistant
DX: Z11.1 Encounter for screening for respiratory tuberculosis (principal)
CPT/HCPCS: 36415; 86481

== ENCOUNTER 2025-10-15 16:20 | Outpatient (REF) | payer OTHER, SELFPAY ==
--- NOTE | ~2025-10-15 | US_ITS ---
CLINICAL HISTORY: M79.604 - Pain in right leg Bilateral lower extremity venous duplex ultrasound. Comparison: None Technique: Real time sonographic imaging, including color-flow imaging and spectral analysis, was performed by the senior process engineer. Multiple footwear sales representative static images were saved for review. Findings: The deep venous systems of both lower extremities are fully compressible from common femoral through the proximal leg veins. There is spontaneous and phasic flow, and augmentation. Color Doppler and spectral tracings are unremarkable. No popliteal fossa cyst. Impression: 1. Bilateral lower extremity venous duplex ultrasound negative for DVT This document has been electronically signed by: Tuan Schofield MD on 10/15/2025 17:34:30
--- OUTSIDE RECORDS SUMMARY | 2025-10-16 00:59 | XMS_ITS | Continuity of Care Document ---
Author Organization [place] - [facility] Address [address] [place] [address] Care Team Providers Care Wage And Hour Investigator Name Role Phone [facility] Primary Care Provi esther Assessment No [...] de jesus patellae Teach HEP 2024 025 [facility]1 [facility], [address] [place], [address], 5 20:33:15 Procedures None recorded. Surgeries None recorded. Imaging None recorded. Medication Orders None recorded. Patient TargetsNo targets [...] a4ajBk vP9nXo QUaueC m3YtLR FvZlgJ JJ8mAn HZtai3 7e8589 AC0Klb 36MUKO iKiQtr MwF INTERFACE [facility] [address], [place], [address], 07/22/2025 13:40:22 07/22/20 25 07/22/2025 XR, knee, 4 or more view [email or web address] ?Encry pted=s hAaTro YD8dLq bEUv6g %2BXZw aYqtaq 0bqfl% 2Fg9IQ a4ajBk vP9nXo QUaueC m3YtLR FvZlgJ JJ8mAn HZtai3 0i9166 AC0Klb 36MUKO iKiQtr MwF INTERFACE [facility] [address], [place], [address], 07/22/2025 13:40:23 07/28/20 25 07/27/2025 MRI, knee, w/o contr ast [facility] Access ion Number : [id number] forrest Name: Renée Marcha l Record Number : [id number] Date of : 1989 Date of Exam: 2024 Referr ing Physic yunier: [facility] ([facility] [address], [address] [place] [address] Exam: MR Knee (C-) CPT 64920 - Right Room Descri ption: [facility] Verio 3.0T Histor y: Fell out of [...] and concur with the reside nt, Suri stern, spenser orellana. Electr onical ly Signed By: Conrado Kaur rd, MD [email or web address] [facility] ([facility]) [address] [facility], [place], [address], 07/29/2025 08:36:28 Result Notes None recorded. Medical Equipment None Reported. Medications Name Sig [...] Not Available Not Available No t Available (28) 1.5 mg-30 mcg (21)/75 mg (7) [...] Updated DateTime 07/30/2025 167.64 cm 31.2 kg/m2 73210.33 g Lise Rowland [place] [facility] 07/30/2025 09:06:30 Social History None recorded. Functional Status None recorded. Mental Status None recorded. Family History Nothing Reported. Medical History No medical history recorded. Gynecological HistoryNo gynecological history recorded. Obstetrics History GPAL:G 0 P 0 0 0 0 Past Encounters Encounter ID Performer Location Encounter Start Date Encounter Closed Date Diagnosis/Indication Diagnosis SNOMED-CT Code Diagnosis ICD10 Code Diagnosis IMO Codes Diagnosis Note [id number] [facility] [address] [place] [address] 07/22/2025 13:15:34 07/29/2025 11:24:08 Pain of right knee joint 5806998423 30683 M25.561 [id number] Derangemen t of right knee 2620562820 7647590 M23.91 [id number] [facility] [address] [place] [address] 07/30/2025 08:57:20 08/11/2025 12:06:09 Chondromalacia of right patella [id number] 5337464 M22.41 [id number] Health Concerns Section Related Observation LastModified by Organization Detai ls LastModified Time None Recorded Concern Status LastModified by Organization Details LastModified Time None Recorded Payers Encounter Date Sequence Insurance Name Policy Number Policy Jaquez Covered Member ID Jaquez Member ID Guarantor Name 07/30/2025 1 [facility] (MEDICAID HMO) LUDWIN March [id number] Avelina March Notes Date Note Type Note Provider Name and Address Organization Details Recorded Time 07/30/2025 text/html I am seeing the patient [...] us as needed. Jorje Magana PA-C [address] [facility] [address] [address], [place], [address], [place] - [facility] 07/30/2025 09:16:22 OBGyn Episode No OBEpisode recorded.
--- OUTSIDE RECORDS SUMMARY | 2025-10-16 00:59 | XMS_ITS | Data Portability ---
Author Organization [facility] ROSSY Watson PT Address [address] [place] [address] Care Team Providers Care Cat Wagon Operator Name Role Phone [facility] Primary Care Provi esther Assessment [...] jesus patellae Teach HEP 2024 025 [email or web address], [address] [place], [address], 5 20:33:15 Procedures None recorded. Surgeries None recorded. Imaging MRI, knee, w/o contrast - R knee mri. ?LMT 2024 025 [facility] ([facility]), [address], [place], [address], 5 16:35:29 XR, knee, 4 or more view - 4v R knee. room 3 2024 025 [facility], [address], [place], [address], 5 14:21:44 Medication Orders None recorded. Patient [...] a4ajBk vP9nXo QUaueC m3YtLR FvZlgJ JJ8mAn HZtai3 4a8647 AC0Klb 36MUKO iKiQtr MwF INTERFACE [facility] [address], [place], [address], 07/22/2025 13:40:22 07/22/20 25 07/22/2025 XR, knee, 4 or more view [email or web address] ?Encry pted=s hAaTro YD8dLq bEUv6g %2BXZw aYqtaq 0bqfl% 2Fg9IQ a4ajBk vP9nXo QUaueC m3YtLR FvZl JJ8mAn HZtai3 9f8352 AC0Klb 36MUKO iKiQtr MwF INTERFACE [facility] [address] [facility] [address], [place], [address], 07/22/2025 13:40:23 07/28/20 25 07/27/2025 MRI, knee, w/o contr ast [facility] Access ion Number : [id number] Name: Renée Marcha anel Record Number : [id number] Date of : 1989 Date of Exam: 2024 Referr ing Physic yunier: [facility] ([facility]) [address], [address] [place] [address] Exam: MR Knee (C-) CPT 63423 - Right Room Descri ption: [facility] Verio 3.0T Histor y: Fell out [...] Signed By: Conrado Kaur rd, MD [email or web address] [facility] ([facility]) [address], [place], [address], 07/29/2025 08:36:28 Result Notes Documentation Provider Name and Address Organization Details Recorded Time Xr, Knee, 4 Or More View : [email or web address] Encrypted=gfOgRkcRT6bYigU Uv6g%7BVRsuOzptk4worm%2Fg 1WJn8rvPzhW6rNtJJxbsHb4Du FVNfLrqUFG3lRfYYiok05o274 8NQ6Uyj81QIZDhOtXpyScI Not Available [facility] 07/22/2025 13:40:22 Xr, Knee, 4 Or More View : [email or web address] Encrypted=ciAnQulXG5xHwrR Uv6g%2URUnnElblq7gotp%2Fg 1CKd5poFecO5yVbLCvoxPv1Hv KLWcDovOCF0gTpERsoy75j958 2CM4Djb22JMPTnMuGqbUqA Not Available [facility] 07/22/2025 13:40:23 Mri, Knee, W/o Contrast : [facility] Accession Number: [id number] Patient Name: Avelina March Date of : 1990 Date of Exam: 07-27-2025 Referring Physician: Jorje Magana [facility] ([facility]) [address] [place] [address], [address] [place] [address] Exam: MR Knee (C-) CPT 85978 - Right Room Description: [facility] 3.0T History: Fell out of chair approximately [...] Electronically Signed By: Conrado Magana PA-C [address] [facility] [address], [place], [address], [facility] 07/29/2025 08:36:28 Medical Equipment None Reported. Medications [...] Updated DateTime 07/22/2025 167.64 cm 31.2 kg/m2 31542.33 g Lise Row[place] [facility] 07/22/2025 13:26:44 Date Recorded Body height Body mass index (BMI) Body weight Provider Name and Address Organization Details Last Updated DateTime 07/30/2025 167.64 cm 31.2 kg/m2 07019.[address] [facility] 07/30/2025 09:06:30 Social History None recorded. Functional Status None recorded. Mental Status None recorded. Family History Nothing Reported. Medical History No medical history recorded. Gynecological HistoryNo gynecological history recorded. Obstetrics History GPAL:G 0 P 0 0 0 0 Past Encounters Encounter ID Performer Location Encounter Start Date Encounter Closed Date Diagnosis/Indication Diagnosis SNOMED-CT Code Diagnosis ICD10 Code Diagnosis IMO Codes Diagnosis Note [id number] [facility] [address] [place] [address] 07/22/2025 13:15:34 07/29/2025 11:24:08 Pain of right knee joint 7055167301 72884 M25.561 395963 Derangemen t of right knee 9634421002 8804788 M23.91 5671012 [id number] [facility] [address] [place] [address] 07/30/2025 08:57:20 08/11/2025 12:06:09 Chondromalacia of right patella 3872502370 4244782 M22.41 [id number] Health Concerns Section Related Observation LastModified by Organization Detai ls LastModified Time None Recorded Concern Status LastModified by Organization Details LastModified Time None Recorded Advance Directives Directive None Recorded Payers Insurance Date Sequence Insurance Name Policy Number Policy Jaquez Covered Member ID Jaquez Member ID Guarantor Name 08/11/2025 1 [facility] - HEALTH NET PLAN (MEDICAID HMO) LUDWIN Avelina March [id number] Avelina March Notes Date Note Type Note [...] extend the knee. She was seen at [facility], which gave her crutches and she is [...] were ordered, obtained and reviewed today at [facility]. 3 views of the knee were [...] discuss MRI results. Jorje Magana PA-C [address] [facility] [address], [place], [address], [facility] - [facility] 07/22/2025 14:21:11 07/30/2025 text/html [...] us as needed. Jorje Magana PA-C [address] [facility] [address], [place], [address], [place] - [facility] 07/30/2025 09:16:22 OBGyn Episode No OBEpisode recorded.
--- OUTSIDE RECORDS SUMMARY | 2025-10-16 00:59 | XMS_ITS | Continuity of Care Document ---
Author Organization [place] - [facility] Surgeons [facility], ROSSY Bonds Clinical Address [address] [place] [address] Care Team Providers Care Angiographer Name Role Phone [facility] MEDICINE Primary Care Provi esther Assessment No assessment recorded. Plan of Treatment Reminders Order Date Submit Date Provider Last Modified By Organization Details Last Modified Time Details Appointments None recorded. Lab None recorded. Referral None recorded. Procedures None recorded. Surgeries None recorded. Imaging MRI, knee, w/o contrast - R knee mri. ?LMT 2024 025 [facility] ([facility]), [address] [place], [address], 5 16:35:29 XR, knee, 4 or more view - 4v R knee. room 3 [address], [address], [facility] [address], [place], [address], 5 14:21:44 Medication Orders None recorded. Patient TargetsNo targets recorded. Patient InstructionsNo instructions recorded. Reason for Referral None Reported. Results Created Date Observation Date Name Description Value Unit Range Abnormal Flag Note LastModifiedBy Organization Detail LastModifiedTime 07/22/2007/22/2025 XR, knee, 4 or more view [email or web address] ?Encry pted=s hAaTro YD8dLq bEUv6g %2BXZw aYqtaq 0bqfl% 2Fg9IQ a4ajBk vP9nXo QUaueC m3YtLR FvZlgJ JJ8mAn HZtai3 7e7089 AC0Klb 36MUKO iKiQtr MwF INTERFACE [facility] [address], [place], [address], 07/22/2025 13:40:22 07/22/20 25 07/22/2025 XR, knee, 4 or more view [email or web address] ?Encry pted=s hAaTro YD8dLq bEUv6g %2BXZw aYqtaq 0bqfl% 2Fg9IQ a4ajBk vP9nXo QUaueC m3YtLR FvZlgJ JJ8mAn HZtai3 9s0142 AC0Klb 36MUKO iKiQtr MwF INTERFACE [facility] [address], [place], [address], 07/22/2025 13:40:23 07/28/20 25 07/27/2025 MRI, knee, w/o contr ast [facility] Access ion Number : [id number] Patien t Name: Renée Marcha l Record Number : [id number] Date of : 1989 Date of Exam: 2024 Referr ing Physic yunier: [facility] ([facility]) [address], [address] [place] [address] Exam: MR Knee (C-) CPT 02515 - Right Room Descri ption: [facility] Verio 3.0T Histor y: Fell out of [...] Signed By: Conrado Kaur rd, MD [email or web address] [facility] ([facility]) [address], [place], [address], 07/29/2025 08:36:28 Result Notes Documentation Provider Name and Address Organization Details Recorded Time Xr, Knee, 4 Or More View : [email or web address] Encrypted=myDtJvgHU4hTvgZ Uv6g%7WAPuxQgdvx1igct%2Fg 8RTn4suXfwS9qGwGOoxeQj7Jm UDDlCmmZRV4zWtATqbn62r690 1TR4Oij87SXKNaRsGjxDxK Not Available [facility] 07/22/2025 13:40: 22 Xr, Knee, 4 Or More View : [email or web address] Encrypted=uaSpDojOP6zUhpZ Uv6g%5NKQpmNgwwm5rmhk%2Fg 3XKb7haYqwO8nVgNSvvcFt2Uf YSXuKtkGJY5qPdBVuoz64r225 1PV8Xbb49BWBKxPaEoeJjS Not Available [facility] 07/22/2025 13:40: 23 Medical Equipment None Reported. Medications Name Sig [...] Updated DateTime 07/22/2025 167.64 cm 31.2 kg/m2 91645.33 g Lise Rowland [place] - [facility] 07/22/2025 13:26:44 Social History None recorded. Functional Status None recorded. Mental Status None recorded. Family History Nothing Reported. Medical History No medical history recorded. Gynecological HistoryNo gynecological history recorded. Obstetrics History GPAL:G 0 P 0 0 0 0 Past Encounters Encounter ID Performer Location Encounter Start Date Encounter Closed Date Diagnosis/Indication Diagnosis SNOMED-CT Code Diagnosis ICD10 Code Diagnosis IMO Codes Diagnosis Note [id number] LUIS M Encarnacion [address] [place] [address] 07/22/2025 13:15:34 07/29/2025 11:24:08 Pain of right knee joint [id number] 52928 M25.561 162901 Derangemen t of right knee [id number] 6972253 M23.91 [id number] Health Concerns Section Related Observation LastModified by Organization Detai ls LastModified Time None Recorded Concern Status LastModified by Organization Details LastModified Time None Recorded Payers Encounter Date Sequence Insurance Name Policy Number Policy Jaquez Covered Member ID Jaquez Member ID Guarantor Name 07/22/2025 1 [facility] - HEALTH NET PLAN (MEDICAID HMO) LUDWIN March [id number] Avelina March Notes Date Note Type Note [...] extend the knee. She was seen at [facility], which gave her crutches and she is [...] were ordered, obtained and reviewed today at [facility]. 3 views of the knee were [...] discuss MRI results. Jorje Magana PA-C [address], [place], [address], [facility] - [facility] 07/22/2025 14:21:11 OBGyn Episode No OBEpisode recorded.
== END 2025-10-15 16:21 | disposition home or self-care (01) ==
LOC: HO.US 16:20
PROVIDERS: Visit Provider Student in an Organized Health Care Education/Training Program
DX: R79.89 Other specified abnormal findings of blood chemistry (principal); M79.89 Other specified soft tissue disorders; M79.604 Pain in right leg
CPT/HCPCS: 93970

== ENCOUNTER → 2025-10-15 16:28 | Outpatient (BNV) | payer OTHER, SELFPAY | PROVIDERS: Visit Provider Radiology Diagnostic Radiology | DX: M79.604 Pain in right leg (principal) | CPT/HCPCS: 93970 ==

== ENCOUNTER 2025-10-25 15:01 | Outpatient (AMB) | payer OTHER, SELFPAY ==
--- NOTE | 2025-10-25 15:04 | A.OFFPC_ITS ---
Vital Signs 10/25/25 15:06 Height 5 ft 4 in Weight 92.986 kg BMI 35.2 BP 110/72 Blood Pressure Location Lt brachial Position Sitting Respiration 18 Pulse 103 H Pulse Source Pulse Oximeter Temp 97.8 F Temp Source Temporal Artery Scan Pulse Oximetry (%) 98 Oxygen Delivery Method Room Air Intake Visit Reasons: Body aches- See comments Child Development Teacher Required: No Accompanied by: Self / Same As Patient Allergies No Known Allergies Allergy (Verified 10/25/25 15:04) Tobacco use date assessed: 09/29/25 Dental Screening Dental Screen Date: 09/29/25 HPI HPI Comments History of Present Illness Details The patient is a 35 year old individual presenting with generalized malaise and myalgia. Viral Upper Respiratory Infection: - Symptoms began yesterday with feeling achy all over. - Associated symptoms include chills, mi ld sore throat, and nasal congestion. - The patient denies fever, cough, short ness of breath, and chest pain. - The patient took Tylenol this morning around 7:15, which provided some relief. - A COVID-19 test was performed and was negative. - The patient reports exposure to client s with COVID-19 at work. Post-Traumatic Stress Disorder: - The patient is under the care of a the rapist and a psychiatrist for PTSD and is currently taking a low dose of Seroquel. - The patient has a history of not respo nding well to SSRI medications. - The patient reports experiencing recen t flashbacks, including an episode yesterday at [employer] during which the patient undressed and has limited memory of the event. Unspecified back pain: - A recent ultrasound of the legs was ne gative for blood clots. - An MRI was previously declined by [facility]. - The [facility]. Medical History: - Post-traumatic stress disorder, manage d by a therapist and psychiatrist - History of poor response to SSRIs - Unspecified back pain Medications: - Seroquel, low dose - Tylenol for current symptoms Social History: - Employment: The patient works overnigh t shifts from 11:00 PM to 7:00 AM. - Family Members: The patient has a husb and and a 76-itvrf-pom daughter. - Exposures: The patient reports that cl ients at work have COVID-19. 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) Vital Signs: Last Vital Signs Temp 97.8 F 10/25/25 15:06 Pulse 103 H 10/25/25 15:06 Resp 18 10/25/25 15:06 BP 110/72 10/25/25 15:06 Pulse Ox 98 10/25/25 15:06 Oxygen Delivery Method Room Air 10/25/25 15:06 BMI result Body Mass Index 35.2 Tobacco/Smoking Status: Tobacco use Status Tobacco use date assessed 09/29/25 10/25/25 15:09 Patient Tobacco Use Status Never used Tobacco 10/25/25 15:09 e-Cigarette/Vaping Use Never Used 10/25/25 15:09 Coding Level of Care Code Est Pt Level 4 (85707) Diagnoses Viral URI J06.9 Assessment & Plan Assessment & Plan (1) Viral URI: Code(s): J06.9 - Acute upper respiratory infection, unspecified Plan Assessment: l. Upper Respiratory Infection - The patient presents with symptoms of myalgia, chills, mild pharyngitis, and congestion. - Given the negative COVID test and clear physical exam, the diagnosis is most consistent with a viral URI. - The plan is for symptomatic management with Tylenol and ibuprofen for myalgia, along with supportive care including rest, hydration, and use of a humidifier or steam showers. - The patient was cautioned about the Tylenol content in trka-cea-cdhqkpc combination medications. - A work note has been provided. 2. Post-Traumatic Stress Disorder - The patient reported a concerning new dissociative episode with public disrobing, indicating an escalation of PTSD symptoms. - The patient was strongly advised to contact their psychiatrist and therapist today for an urgent evaluation, rather than waiting for tomorrow's scheduled appointment. - A brief discussion was held regarding potential medication options the patient could explore with their psychiatrist, such as Prazosin, noting the patient's past intolerance to SSRIs. - The patient was advised to have an escort if needing to leave home for safety and reassurance. 3. Unspecified Back Pain - We reviewed the ongoing plan for the patient's back pain. - The patient's recent leg ultrasound was negative for DVT, and an MRI was previously denied by insurance. - The patient will proceed with a trial of grounds caretaker for 6-8 weeks. - If there is no improvement, we will re-attempt to obtain insurance authorization for an MRI. Plan: - Manage symptoms of viral URI with Tylenol and ibuprofen for myalgia. - Utilize symptomatic care including hot steam showers and a humidifier. - Advised that svse-idj-kuuwzhr medications like DayQuil and NyQuil contain Tylenol and should be used with caution to avoid overdose. - Patient strongly advised to contact their therapist and psychiatrist today regarding recent PTSD flashbacks, rather than waiting for tomorrow's appointment. - Will provide a work note to excuse absences from last night through the upcoming Saturday morning shift. - Patient will try a course of grounds caretaker for 6-8 weeks for back pain. - If grounds caretaker is ineffective, an attempt will be made to get another MRI authorized. - Advised patient to have an escort, such as their , if they need to go out before speaking with their mental health team. - Encouraged increased fluid intake. Patient was informed and verbally consented to the use of an ambient scribe for clinic note documentation during this visit.
[2025-10-25 15:06] VITALS: BP 110/72; PULSE 103; RESP 18; TEMP 36.6; O2SAT 98; BMI 35.2
--- OUTSIDE RECORDS SUMMARY | 2025-10-25 19:48 | XMS_ITS | Data Portability ---
Author Organization [facility] Surgeons [facility], ROSSY Watson PT Address [address] [place] [address] Care Team Providers Care Forging Machine Hand Name Role Phone [facility] Primary Care Provi esther Assessment [...] jesus patellae Teach HEP 2024 025 [email or web address] [facility], [address] [place], [address], 5 20:33:15 Procedures None recorded. Surgeries None recorded. Imaging MRI, knee, w/o contrast - R knee mri. ?LMT [address] [facility] ([facility]), [address], [place], [address], 5 16:35:29 XR, knee, 4 or more view - 4v R knee. room 3 2024 025 jackie Rahman Office, [address], [place], [address], 5 14:21:44 Medication Orders None recorded. Patient [...] a4ajBk vP9nXo QUaueC m3YtLR FvZlgJ JJ8mAn HZtai3 5d2779 AC0Klb 36MUKO iKiQtr MwF INTERFACE [facility] [address], [place], [address], 07/22/2025 13:40:22 07/22/20 25 07/22/2025 XR, knee, 4 or more view [email or web address] ?Encry pted=s hAaTro YD8dLq bEUv6g %2BXZw aYqtaq 0bqfl% 2Fg9IQ a4ajBk vP9nXo QUaueC m3YtLR FvZl JJ8mAn HZtai3 6z7804 AC0Klb 36MUKO iKiQtr MwF INTERFACE [facility] [address] [facility] [address], [place], [address], 07/22/2025 13:40:23 07/28/20 25 07/27/2025 MRI, knee, w/o contr ast [facility] Access ion Number : [id number] Edwige clayton Name: Renée Marcha anel Record Number : [id number] Date of : 1989 Date of Exam: 2024 Referr ing Physic yunier: [facility] ([facility]) [address], [address] [place] [address] Exam: MR Knee (C-) CPT 29775 - Right Room Descri ption: [place] [facility] Verio 3.0T Histor y: Fell out [...] Signed By: Conrado Kaur rd, MD [email or web address] [facility] ([facility]) [address], [place], [address], 07/29/2025 08:36:28 Result Notes Documentation Provider Name and Address Organization Details Recorded Time Xr, Knee, 4 Or More View : [email or web address] Encrypted=smHkWvdRQ3rNfiR Uv6g%7AFWxzWabsw5pwjo%2Fg 1EZz6jrShcY0yUqUDlhtBw7So OXHlMtjFVQ1fOiHXpfo02s420 6KG4Lnz05NOGYdPlFpdDvO Not Available [facility] 07/22/2025 13:40:22 Xr, Knee, 4 Or More View : [email or web address] Encrypted=rnJnUupPL4bWryI Uv6g%1IAWpdEikix9jthl%2Fg 7PZh3wmGdoZ1vYwCUajmJz7Kc XQGdWkuNND6tXfFOqgy65u470 3VW1Lat43JRITdMxHuvTdO Not Available [facility] 07/22/2025 13:40:23 Mri, Knee, W/o Contrast : [facility] Accession Number: [id number] Patient Name: Avelina March Date of : 1990 Date of Exam: 07-27-2025 Referring Physician: Jorje Magana [facility] ([facility]) [address] [place] [address], [address] [place] [address] Exam: MR Knee (C-) CPT 46124 - Right Room Description: [employer] 3.0T History: Fell out of chair approximately [...] Electronically Signed By: Conrado Magana PA-C [address], [place], [address], [facility] 07/29/2025 08:36:28 Medical Equipment None Reported. [...] Updated DateTime 07/22/2025 167.64 cm 31.2 kg/m2 62142.33 g Lise Rowland [facility] 07/22/2025 13:26:44 Date Recorded Body height Body mass index (BMI) Body weight Provider Name and Address Organization Details Last Updated DateTime 07/30/2025 167.64 cm 31.2 kg/m2 49063.33 g Lise Gill [place] - [facility] 07/30/2025 09:06:30 Social History None recorded. Functional Status None recorded. Mental Status None recorded. Family History Nothing Reported. Medical History No medical history recorded. Gynecological HistoryNo gynecological history recorded. Obstetrics History GPAL:G 0 P 0 0 0 0 Past Encounters Encounter ID Performer Location Encounter Start Date Encounter Closed Date Diagnosis/Indication Diagnosis SNOMED-CT Code Diagnosis ICD10 Code Diagnosis IMO Codes Diagnosis Note [id number] LUIS M Encarnacion Clinical [address] [place] [address] 07/22/2025 13:15:34 07/29/2025 11:24:08 Pain of right knee joint [id number] 90059 M25.561 758811 Derangemen t of right knee 6901727372 9376905 M23.91 6970643 [id number] LUIS M Encarnacion Clinical [address] [place] [address] 07/30/2025 08:57:20 08/11/2025 12:06:09 Chondromalacia of right patella 5251314223 7270042 M22.41 [id number] Health Concerns Section Related Observation LastModified by Organization Detai ls LastModified Time None Recorded Concern Status LastModified by Organization Details LastModified Time None Recorded Advance Directives Directive None Recorded Payers Insurance Date Sequence Insurance Name Policy Number Policy Jaquez Covered Member ID Jaquez Member ID Guarantor Name 08/11/2025 1 [facility] - HEALTH NET PLAN (MEDICAID HMO) LUDWIN Avelina March [id number] Avelina March Notes Date Note Type Note [...] extend the knee. She was seen at [facility], which gave her crutches and she [...] were ordered, obtained and reviewed today at [facility]. 3 views of the knee were [...] discuss MRI results. Jorje Magana PA-C [address], [place], [address], [facility] - [facility] 07/22/2025 14:21:11 07/30/2025 text/html [...] us as needed. Jorje Magana PA-C [address] [facility] [address], [place], [address], [place] - [facility] 07/30/2025 09:16:22 OBGyn Episode No OBEpisode recorded.
--- OUTSIDE RECORDS SUMMARY | 2025-10-25 19:48 | XMS_ITS | Clinical Summary ---
Author Organization [facility] Address [address] [place] [address] Phone Care Team Providers Care Derrick Engineer Name Role Phone Luba Barnes MD Primary Care Provider [phone] Allergies Active Allergy Reactions Criticality Noted Date Comments Latex 01/29/2025 Other Reaction(s): Recurrent UTI - urinary tract infection Medications QUEtiapine (SEROquel) 25 mg tablet Take 1 tablet (25 mg total) by mouth 1 (one) time each day. 12/03/2015 Active Junel FE 1.5/30, 28, 1.5 mg-30 mcg (21)/75 mg (7) per tablet TAKE 1 TABLET BY MOUTH EVERY DAY 84 tablet 1 06/21/2025 Active meloxicam (MOBIC) 7.5 mg tablet Take 1 tablet (7.5 mg total) by mouth 1 (one) time each day for 14 days. 14 each 09/16/2025 Active Problems Problem Noted Date Diagnosed Date COVID-19 09/30/2024 Class 2 obesity 09/30/2024 Fatigue 06/18/2024 Multiple joint pain 06/18/2024 Tremor of both hands 06/18/2024 Obesity with body mass index 30 or greater 10/19 Overview (09/30/2024): Problem added by Discern Expert Hyperlipidemia 04/07/2018 Bipolar disorder ([facility] V24, [facility] V28) 06/05/2011 Overview (09/30/2024): Follows with [facility]; therapist Vivian goes to therapy weekly Depression 05/07/2011 Overview (09/30/2024): 02/09/12 Was at [facility] ED for suicidal ideations; wants to cut herself; was seen by N; cleared by crisis 11/17/2018: most recent hospitalization was when she was 17 09/02/2019: Patient taking Seroquel 25 mg PO daily Results of [place] Depression Scale (EPDS) Question #10. In the past 7 days, the thought of harming myself has occurred to me: Never EDPS Score: 13 EDPS Interpretation (Maximum Score:30): 10 or greater: Possible Depression. 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 Encounters Date Type Department Care Team Description 09/30/2025 Telephone [facility] [place] [address] Luba Barnes MD 09/23/2025 Results [facility] [place] [phone] Dario Crain NP 09/16/2025 2:30 PM EDT Ancillary Procedure [facility] - [facility] [address] [facility] [address] [place] [address] Chest pain, unspecified type; Palpitation 09/16/2025 10:00 AM EDT Office [facility] [place] [phone] John Jara PA Chronic right-sided low back pain with right-sided sciatica (Primary Dx) 09/16/2025 Telephone Internal [facility] - [facility] [place] [address] Luba Barnes MD 09/14/2025 Telephone Obstetrics and Gynecology [address] [address] Devonte Esterruss Mendez CNM 09/03/2025 Telephone Internal Medicine - [address] [phone] Luba Barnes MD 08/27/2025 Telephone Internal Medicine [address] [address] Luba Barnes MD 08/05/2025 Telephone Internal Medicine [address] [address] Dario Crain NP 07/28/2025 8:30 AM EDT Office Visit Internal Medicine [address] [address] Dario Crain NP Chest pain, unspecified type (Primary Dx); Palpitation from Last 3 Months Immunizations Immunization Administration Dates Next Due DTP 1989,1989,1989 DTaP (Infanrix) 6wks to less than 7yo 08/04/1994 AYdR-BJX-QOT (Pentacel) 2mo to less than 5yo 1989 HPV, Quadrivalent 04/17/2012,03/12/2008,01/08/20 08 Hepatitis A Adult (Havrix; V aqta) 19yo and older 02/04/2008 Hepatitis B (Wakzplh-Y-Pjirh , Recombivax HB-Adult) 19yo and older 08/24/2009,07/13/2009 [...] well as borderline intellectual functioning Bipolar disorder ([facility] V2 4, [facility] V28) 05/07/2011 DX:Bipolar disorder ([facility]); C OMMENT: Follows with [facility]; therapist Vivian goes to therapy weekly Depression 05/07/2011 DX:Depression; C OMMENT: 02/09/12 Was at [facility] for suicidal ideations; wants to cut herself; was seen by N; cleared by crisis Hyperlipidemia 04/07/2018 DX:Hyperlipidemi a Family History Medical History Relation Name Comments Asthma Brother Diabetes Father hyperlipidemia, htn, [place], ?inflammatory arthritis Other: Parkinsons Disease Father ar thritis Other: unknown cancer Maternal Grandfather Other: malnourished Mother shreya brown Other: autism Son Danile Breast cancer Neg Hx Colon cancer Neg [...] F Vag-S pont Livin g Delivery Location:[facility] Last Filed Vital Signs Vital [...] Care Team (Late st Contact Info) Description 10/26/2025 9:45 AM EST Office Visit Orthopedic Surgery [place] [address] [address] [facility] [address] [place] [phone] Shamir Doshi, DPShara 175 [facility] [address] [place] [address] 11/22/2025 2:00 PM EST Appointment Radiology Department - [address] [address] 11/22/2025 2:30 PM EST Appointment Radiology Department - [address] [address] 01/13/2026 9:00 AM EST Consult [facility] [address] [facility] [address] [place] [address] Deshawn Sanchez MD 175 [place], [place] [phone] 02/01/2026 3:00 PM EST Consult Bariatric Surgery - [place] 175 [facility] 120 [place] [address] Tono Comer MD 230 [place] [address] 06/28/2026 9:00 AM EDT Office Visit Internal Medicine - [facility] 305 [place] [address] Luba Barnes MD [address] [place] [phone] Health Maintenance Due Date Last Done Comments [...] Diagnost ic Narrative 09/22/2025 2:[address] [facility] DI[facility]ST[facility]ING DEPARTMENT [address] [facility], [address], [place] [address] TEL: FAX: Type of test: 24 hour Holter Monitor Date of test: 09/16/25 Ordering provider: Dario Crain NP Reason for Test: Palpitations [employer]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 Dario Crain LEAD TINNER CV CARDIAC SERVICES PROCEDURES Final Result * HPV with reflex genotype (01/29/2025 10:02 AM EST) [facility] HPV Negative Negative LAB MICROBIOLOGY METHOD 02/01/2025 1:17 PM [facility] Brushing Cervix uteri structure / Unknown 01/29/2025 10:02 AM EST 02/01/2025 6:09 AM EST [facility] MOLECULAR DIAGNOSTICS ORD ERABLES Final Result [facility] [address] [place] [address], * (ABNORMAL) Lipid panel with reflex to direct LDL (10/22/2024 5:01 PM EST) [facility] Cholesterol 225(H) 0 - 200 mg/dL LAB CHEMISTRY METHOD 10/22/2024 6:19 PM [facility] Triglycerides 192(H) 0 - 150 mg/dL LAB CHEMISTRY METHOD 10/22/2024 6:19 PM [facility] HDL 46 >=40 mg/dL LAB CHEMISTRY METHOD 10/22/2024 6:19 PM [facility] LDL Calculated 141(H) 0 - 100 mg/dL LAB CHEMISTRY METHOD 10/22/2024 6:19 PM [facility] VLDL Cholesterol Fernando 38.4 mg/dL LAB CHEMISTRY METHOD 10/22/2024 6:19 PM EST [facility] Non HDL Chol. (LDL+VLDL) 179(H) <145 mg/dL LAB CHEMISTRY METHOD 10/22/2024 6:19 PM EST [facility] Chol/HDL Ratio 4.9(H) 0.0 - 4.4 LAB CHEMISTRY METHOD 10/22/2024 6:19 PM EST [facility] Blood Venous blood specimen / Unknown Venipuncture / Unknown 10/22/2024 5:01 PM EST 10/22/2024 5:01 PM EST us Audra Nuñez MD LAB BLOOD ORDERABLES Final Result [facility] [address] [place] [address], from Last 3 Months or Most Recently Relevant to Health Maintenance Insurance [facility] [facility] Care Teams Derrick Engineer Relationship Specialty Start Date End Date Luba Barnes MD [address] [place], [place] PCP - General Internal Medicine 02/03/25
--- OUTSIDE RECORDS SUMMARY | 2025-10-25 19:48 | XMS_ITS | Continuity of Care Document ---
Author Organization [place] [facility] Address [address] [place] [address] Care Team Providers Care Towel Inspector Name Role Phone [facility] Primary Care Provi etsher Assessment No assessment recorded. Plan of Treatment [...] de jesus patellae Teach HEP 2024 025 [facility], [address] [place], [address], 5 20:33:15 Procedures None recorded. Surgeries None [...] a4ajBk vP9nXo QUaueC m3YtLR FvZlgJ JJ8mAn HZtai3 2v3344 AC0Klb 36MUKO iKiQtr MwF INTERFACE [facility] [address], [place], [address], 07/22/2025 13:40:22 07/22/20 25 07/22/2025 XR, knee, 4 or more view http:/ [email or web address] ?Encry pted=s hAaTro YD8dLq bEUv6g %2BXZw aYqtaq 0bqfl% 2Fg9IQ a4ajBk vP9nXo QUaueC m3YtLR FvZlgJ JJ8mAn HZtai3 7q7394 AC0Klb 36MUKO iKiQtr MwF INTERFACE [facility] [address], [place], [address], 07/22/2025 13:40:23 07/28/20 25 07/27/2025 MRI, knee, w/o contr ast [facility] Access ion Number : [id number] Edwige forrest Name: Renée Marcha l Record Number : [id number] Date of : 1989 Date of Exam: 2024 Referr ing Physic yunier: [facility] ([facility]) [address] [place] [address] Exam: MR Knee (C-) CPT 51963 - Right Room Descri ption: [facility] Verio 3.0T Histor y: Fell out [...] Signed By: Conrado Kaur rd, MD [email or web address] [facility] ([facility]) [address] [facility], [place], [address], 07/29/2025 08:36:28 Result Notes None recorded. Medical [...] Updated DateTime 07/30/2025 167.64 cm 31.2 kg/m2 73833.33 g Lise Rowland [place] [facility] 07/30/2025 09:06:30 Social History None recorded. Functional Status None recorded. Mental Status None recorded. Family History Nothing Reported. Medical History No medical history recorded. Gynecological HistoryNo gynecological history recorded. Obstetrics History GPAL:G 0 P 0 0 0 0 Past Encounters Encounter ID Performer Location Encounter Start Date Encounter Closed Date Diagnosis/Indication Diagnosis SNOMED-CT Code Diagnosis ICD10 Code Diagnosis IMO Codes Diagnosis Note [id number] [facility] [address] [place] [address] 07/22/2025 13:15:34 07/29/2025 11:24:08 Pain of right knee joint [id number] 96584 M25.561 [id number] Derangemen t of right knee 5273841065 3364227 M23.91 [id number] [facility] [address] [place] [address] 07/30/2025 08:57:20 08/11/2025 12:06:09 Chondromalacia of right patella [id number] [id number] M22.41 [id number] Health Concerns Section Related Observation LastModified by Organization Detai ls LastModified Time None Recorded Concern Status LastModified by Organization Details LastModified Time None Recorded Payers Encounter Date Sequence Insurance Name Policy Number Policy Jaquez Covered Member ID Jaquez Member ID Guarantor Name 07/30/2025 1 [facility] (MEDICAID HMO) LUDWIN March [id number] Avelina March Notes Date Note Type Note [...] us as needed. Jorje Magana PA-C [address] [facility] [address], [place], [address], [place] [facility] 07/30/2025 09:16:22 OBGyn Episode No OBEpisode recorded.
--- OUTSIDE RECORDS SUMMARY | 2025-10-25 19:48 | XMS_ITS | Encounter Summary ---
Author Organization [facility] Address [address] [place] [address] Care Team Providers Care Hot Billet Shear Operator Name Role Phone Luba Barnes MD Primary Care Provider [phone] Reason for Visit * Reason Onset Date Comments Appointment 09/23/2025 Lmtcb on voice m ail , please transfer call to ext : [phone] thanks. BANUELOS Encounter Details Date Type Department Care Team (Late st Contact Info) Description 09/23/2025 Results Follow-Up Internal Medicine - [address] [address] Dario Crain NP [address] [place] [address] Social History Tobacco Use Types Packs/Day Years [...] 9:45 AM EST Office Visit Orthopedic Surgery - [place] [address] 175 [facility] 250 [place] [phone] Shamir Doshi DPM 175 [facility] 250 [place] [address] 11/22/2025 2:00 PM EST Appointment Radiology Department - [address] [address] 11/22/2025 2:30 PM EST Appointment Radiology Department - [address] [address] 01/13/2026 9:00 AM EST Consult [facility] [place] - [place] 175 [facility] [address] [place] [address] Deshawn Sanchez MD 175 [place] [address] 02/01/2026 3:00 PM EST Consult Bariatric Surgery - [place] 175 [facility] 120 [place] [address] Tono Comer MD 230 [place] [address] 06/28/2026 9:00 AM EDT Office Visit Internal Medicine - [facility] 305 [place], [place] [phone] Luba Barnes MD [address] [place] [address] documented as of this encounter Visit Diagnoses Not on filedocumented in this encounter Additional Health Concerns Assessment Noted Time PHQ-9 Depression Total Score: 0 01/29/20 8:21 AM EST documented as of this encounter Care Teams Hot Billet Shear Operator Relationship Specialty Start Date End Date Luba Barnes MD [address] [place] [phone] PCP - General Internal Medicine 02/03/25 documented as of this encounter
== END 2025-10-25 15:30 | disposition home or self-care (01) ==
PROVIDERS: PCP Physician Assistant; Visit Provider Physician Assistant
DX: J06.9 Acute upper respiratory infection, unspecified (principal)

== ENCOUNTER → 2025-10-25 15:01 | Outpatient (BNVA) | payer OTHER, SELFPAY | PROVIDERS: Visit Provider Physician Assistant | DX: J06.9 Acute upper respiratory infection, unspecified (principal); F43.10 Post-traumatic stress disorder, unspecified; M54.9 Dorsalgia, unspecified; M79.18 Myalgia, other site | CPT/HCPCS: 99212 ==

== ENCOUNTER 2025-11-02 13:20 | Outpatient (AMB) | payer OTHER, SELFPAY ==
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
[2025-11-02 13:27] VITALS: BP 100/58; PULSE 94; RESP 14; TEMP 36.6; O2SAT 97; BMI 35.4
--- OUTSIDE RECORDS SUMMARY | 2025-11-02 15:21 | XMS_ITS | Data Portability ---
Author Organization [facility], ROSSY Watson PT Address [address] [place] [address] Care Team Providers Care Wearing Apparel Assembler Name Role Phone [facility] [...] jesus patellae Teach HEP 2024 025 [email or web address] [facility], [address] [place], [address], 5 20:33:15 Procedures None recorded. Surgeries None recorded. Imaging MRI, knee, w/o contrast - R knee mri. ?LMT 2024 025 [facility] ([facility]), [address], [place], [address], 5 16:35:29 XR, knee, 4 or more view - 4v R knee. room 3 2024 025 [facility]ie [facility], [address], [place], [address], 5 14:21:44 Medication Orders None recorded. Patient [...] a4ajBk vP9nXo QUaueC m3YtLR FvZlgJ JJ8mAn HZtai3 4u4524 AC0Klb 36MUKO iKiQtr MwF INTERFACE [facility] [address], [place], [address], 07/22/2025 13:40:22 07/22/20 25 07/22/2025 XR, knee, 4 or more view http:/ [email or web address] ?Encry pted=s hAaTro YD8dLq bEUv6g %2BXZw aYqtaq 0bqfl% 2Fg9IQ a4ajBk vP9nXo QUaueC m3YtLR FvZl JJ8mAn HZtai3 2l1456 AC0Klb 36MUKO iKiQtr MwF INTERFACE [facility] [address] [facility] [address], [place], [address], 07/22/2025 13:40:23 07/28/20 25 07/27/2025 MRI, knee, w/o contr ast [facility] Access ion Number : [id number] Edwige clayton Name: Renée Marcha anel Record Number : [id number] Date of : 1989 Date of Exam: 2024 Referr ing Physic yunier: [facility] [address], [address] [place] [address] Exam: MR Knee (C-) CPT 27902 - Right Room Descri ption: [facility] 3.0T Histor y: Fell out [...] Signed By: Conrado Kaur rd, MD [email or web address] [facility] ([facility]) [address], [place], [address], 07/29/2025 08:36:28 Result Notes Documentation Provider Name and Address Organization Details Recorded Time Xr, Knee, 4 Or More View : [email or web address]? Encrypted=ghQtMzcAD4mHvvA Uv6g%3LFPctZtjso6bync%2Fg 0FKg3mpZcoZ0gGeAJpxaKx0Rq GRWvRisLLK0eRrUXnyy24b260 6LO5Uty38ZXGVnFnLbvOgS Not Available [facility] 07/22/2025 13:40:22 Xr, Knee, 4 Or More View : [email or web address] Encrypted=jgYcLspCF2wJljJ Uv6g%9GSKxwXxxfo5xwgz%2Fg 6DLg0yjZznL6cOuRFiuiHq5Py BUWmFozQAH6eZxRIquy34v507 3NF3Pzr33RAJSgEcRfuQeW Not Available [facility] 07/22/2025 13:40:23 Mri, Knee, W/o Contrast : [facility] Accession Number: [id number] Patient Name: Avelina March Date of : 1990 Date of Exam: 07-27-2025 Referring Physician: Jorje Magana [facility] ([facility]) [address] [place] [address], [address] [place] [address] Exam: MR Knee (C-) CPT 63949 - Right Room Description: [facility] 3.0T History: Fell out of chair [...] Electronically Signed By: Conrado Magana PA-C [address] [facility] [address], [place], [address], [facility] 07/29/2025 08:36:28 Medical Equipment None Reported. [...] Updated DateTime 07/22/2025 167.64 cm 31.2 kg/m2 62353.33 g Lise Rowland [facility] 07/22/2025 13:26:44 Date Recorded Body height Body mass index (BMI) Body weight Provider Name and Address Organization Details Last Updated DateTime 07/30/2025 167.64 cm 31.2 kg/m2 57652.33 g Lise Gill ID - [facility] 07/30/2025 09:06:30 Social History None recorded. Functional Status None recorded. Mental Status None recorded. Family History Nothing Reported. Medical History No medical history recorded. Gynecological HistoryNo gynecological history recorded. Obstetrics History GPAL:G 0 P 0 0 0 0 Past Encounters Encounter ID Performer Location Encounter Start Date Encounter Closed Date Diagnosis/Indication Diagnosis SNOMED-CT Code Diagnosis ICD10 Code Diagnosis IMO Codes Diagnosis Note [id number] [facility] [address] [place] [address] 07/22/2025 13:15:34 07/29/2025 11:24:08 Pain of right knee joint 6920031709 85086 M25.561 247510 Derangemen t of right knee 5010553929 5403069 M23.91 [id number] [facility] [address] [place] [address] 07/30/2025 08:57:20 08/11/2025 12:06:09 Chondromalacia of right patella 4712701917 3542772 M22.41 [id number] Health Concerns Section Related Observation LastModified by Organization Detai ls LastModified Time None Recorded Concern Status LastModified by Organization Details LastModified Time None Recorded Advance Directives Directive None Recorded Payers Insurance Date Sequence Insurance Name Policy Number Policy Jaquez Covered Member ID Jaquez Member ID Guarantor Name 08/11/2025 1 [facility] - HEALTH NET PLAN (MEDICAID HMO) LUDWIN Avelina March [id number] Avelina March Notes Date Note Type Note [...] extend the knee. She was seen at [facility], which gave her crutches and she [...] were ordered, obtained and reviewed today at [facility]. 3 views of the knee were [...] discuss MRI results. Jorje Magana PA-C [address] [facility] [address], [place], [address], [facility] - [facility] 07/22/2025 14:21:11 07/30/2025 text/html [...] us as needed. Jorje Magana PA-C [address] [facility] [address], [place], [address], [place] ID - [facility] 07/30/2025 09:16:22 OBGyn Episode No OBEpisode recorded.
== END 2025-11-02 14:11 | disposition home or self-care (01) ==
LOC: HO.HMCHD 13:21
PROVIDERS: PCP Physician Assistant; Visit Provider Physician Assistant
DX: F43.10 Post-traumatic stress disorder, unspecified (principal); F31.9 Bipolar disorder, unspecified

== ENCOUNTER → 2025-11-02 13:20 | Outpatient (BNVA) | payer OTHER, SELFPAY | PROVIDERS: PCP Physician Assistant; Visit Provider Physician Assistant | DX: F43.10 Post-traumatic stress disorder, unspecified (principal); F31.9 Bipolar disorder, unspecified | CPT/HCPCS: 99212 ==

== ENCOUNTER 2025-11-23 08:18 | Outpatient (AMB) | payer OTHER, SELFPAY ==
--- OUTSIDE RECORDS SUMMARY | 2025-11-22 13:40 | XMS_ITS | Encounter Summary ---
Author Organization [facility] Address [address] [place] [address] Care Team Providers Care Spreader Operator Automatic Name Role Phone Luba Barnes MD Primary Care Provider [phone] Reason for Referral * Imaging (Routine) - Authorized Specialty Diagnoses / Procedures Referred By William clayton Referred To Contact Radiology Diagnoses Breast pain, left Family history of breast cancer Procedures MG Mammo Digital Diagnostic w [place] bilat MG Mammo Digital Screening w [place] bilat MG Mammo Digital Diagnostic bilat Mel Cat PA [address] [place] [address] Phone: tel: fax: [address] Phone: tel: Referral ID Status Reason Start Date Expiration Date V isits Requested Visits Authorized [id number] Authorized 07/08/2025 07/08/2026 1 1 Reason for Visit * Imaging (Routine) - Authorized Specialty Diagnoses / Procedures Referred By William clayton Referred To Contact Radiology Diagnoses Breast pain, left Family history of breast cancer Procedures MG Mammo Digital Diagnostic w [place] bilat MG Mammo Digital Screening w [place] bilat MG Mammo Digital Diagnostic bilat Mel Cat PA [address] [place] [address] Phone: tel: fax: [facility] [address] Phone: tel: Referral ID Status Reason Start Date Expiration Date V isits Requested Visits Authorized [id number] Authorized 07/08/2025 07/08/2026 1 1 Encounter Details Date Type Department Care Team (Latest Contact Info) Description 11/22/2025 1:40 PM EST - 11/22/2025 11:59 PM EST Hospital Encounter Radiology Department - [address] [phone] Breast pain, left; Family history of breast cancer Discharge Disposition: Home or Self Care Social History Tobacco Use Types Packs/Day Years [...] on file documented as of this encounter Medications at Time of Discharge 1.5/30, 28, 1.5 mg-30 mcg (21)/75 mg (7) per tablet TAKE 1 TABLET BY MOUTH EVERY DAY 84 tablet 1 06/21/2025 QUEtiapine (SEROquel) 25 mg tablet Take 1 tablet (25 mg total) by mouth 1 (one) time each day. 12/03/2015 documented as of this encounter Discharge Disposition Disposition Code Departure Means Destination Home or Self Care documented in this encounter Plan of Treatment Upcoming Encounters Date Type Department Care Team (Late st Contact Info) Description 12/13/2025 9:15 AM EST Office Visit Orthopedic Surgery - [place] [address] [phone] Shamir Doshi DPM 175 [facility] [address] [place] [address] 01/13/2026 9:00 AM EST Consult [facility] [place] [facility] [place] 175 [facility] [address] [place] [phone] Deshawn Sanchez MD 175 [place] [address] 02/01/2026 3:00 PM EST Consult Bariatric Surgery - [place] 175 [facility] [address] [place] [phone] Tono Comer MD [address] [place] [phone] documented as of this encounter Procedures Procedure Name Priority Date/Time Associated Diagnosis Comments MG MAMMO DIGITAL DIAGNOSTIC W [place] BILAT Routine 11/22/2025 2:03 PM EST Breast pain, left Family history of breast cancer documented in this encounter Results * MG Mammo Digital Diagnostic w [place] bilat (11/22/2025 2:03 PM EST) Anatomical Region Laterality Modality Breast Bilateral Mammography 11/22/2025 2:07 PM EST Impressions 11/22/2025 2:29 PM EST 1. Left: No mammographic or sonographic evidence of malignancy in area of palpable concern 2. Right: No mammographic evidence of malignancy 3. Scattered fibroglandular tissue Findings and recommendations were conveyed to the patient. BI-RADS CATEGORY: 2 - BENIGN RECOMMENDATION: Screening bilateral mammogram recommended at age 40 unless clinically indicated earlier. Screening bilateral mammogram recommended at age 40 unless clinically indicated earlier. Mammo Location: Scan -------- FINAL REPORT -------- Dictated By: Enmanuel Steele Dictated Date: 11/22/2025 14:07 ET Assigned Physician: Enmanuel Steele Reviewed and Electronically Signed By: Enmanuel Steele Signed Date: 11/22/2025 14:29 ET Workstation ID: [id number] Transcribed By: Self Edit Transcribed Date: 11/22/2025 14:27 ET Narrative 11/22/2025 2:29 PM EST BILATERALDIGITAL DIAGNOSTIC 3D MAMMOGRAPHY HISTORY: Workup for left breast palpable abnormality in a 35-year-old female COMPARISON: Baseline Technique: Bilateral CC and MLO full field views 3-D, left breast exaggerated CC 3-D FINDINGS: Right: No suspicious masses, microcalcifications or areas of architectural distortion. Typically benign stable parenchymal asymmetries. Left: No suspicious masses, microcalcifications or areas of architectural distortion. Typically benign stable parenchymal asymmetries. BREAST DENSITY: B - There are scattered areas of fibroglandular density. EXAM: LEFT BREAST TARGETED ULTRASOUND EVALUATION HISTORY: Workup for left breast palpable abnormalities TECHNIQUE: Ultrasonographic examination is performed using a linear array transducer. Targeted left breast ultrasound at 6:00 and 10:00 in area of palpable concern. Real-time sonographic scanning was also performed by the radiologist FINDINGS: At 6:00, no sonographic evidence of malignancy or other focal abnormalities were identified at the left breast in area of palpable concern At 10:00, no sonographic evidence of malignancy or other focal abnormalities were identified at the left breast in area of palpable concern Procedure Note Enmanuel Steele MD - 11/22/2025 BILATERALDIGITAL DIAGNOSTIC 3D MAMMOGRAPHY HISTORY: Workup for left breast palpable abnormality in a 90-mcxw-fcpvddzmp COMPARISON: Baseline Technique: Bilateral CC and MLO full field views 3-D, left breastexaggerated CC 3-D FINDINGS: Right: No suspicious masses, microcalcifications or areas of architecturaldistortion. Typically benign stable parenchymal asymmetries. Left: No suspicious masses, microcalcifications or areas of architecturaldistortion. Typically benign stable parenchymal asymmetries. BREAST DENSITY: B - There are scattered areas of fibroglandular density. EXAM: LEFT BREAST TARGETED ULTRASOUND EVALUATION HISTORY: Workup for left breast palpable abnormalities TECHNIQUE: Ultrasonographic examination is performed using a linear arraytransducer. Targeted left breast ultrasound at 6:00 and 10:00 in area ofpalpable concern. Real-time sonographic scanning was also performed by theradiologist FINDINGS: At 6:00, no sonographic evidence of malignancy or other focalabnormalities were identified at the left breast in area of palpableconcern At 10:00, no sonographic evidence of malignancy or other focalabnormalities were identified at the left breast in area of palpableconcern IMPRESSION: 1. Left: No mammographic or sonographic evidence of malignancy in area ofpalpable concern 2. Right: No mammographic evidence of malignancy 3. Scattered fibroglandular tissue Findings and recommendations were conveyed to the patient. BI-RADS CATEGORY: 2 - BENIGN RECOMMENDATION: Screening bilateral mammogram recommended at age 40 unless clinicallyindicated earlier. Screening bilateral mammogram recommended at age 40unless clinically indicated earlier. Mammo Location: Scan -------- FINAL REPORT -------- Dictated By: Enmanuel Steele Dictated Date: 11/22/2025 14:07 ET Assigned Physician: Enmanuel Steele Reviewed and Electronically Signed By: Enmanuel Steele Signed Date: 11/22/2025 14:29 ET Workstation ID: [id number] Transcribed By: Self Edit Transcribed Date: 11/22/2025 14:27 ET Mel GARCIA IMG BI PROCEDURES Final Resu lt documented in this encounter Visit Diagnoses Diagnosis Breast pain, left Family history of breast cancer Family history of malignant neoplasm of breast documented in this encounter Additional Health Concerns Assessment Noted Time PHQ-9 Depression Total Score: 0 01/29/20 8:21 AM EST documented as of this encounter Care Teams Spreader Operator Automatic Relationship Specialty Start Date End Date Luba Barnes MD [address] [place] [phone] PCP - General Internal Medicine 02/03/25 documented as of this encounter
--- OUTSIDE RECORDS SUMMARY | 2025-11-22 13:41 | XMS_ITS | Encounter Summary ---
Author Organization [facility] Address [address] [place] [address] Care Team Providers Care Brush Machine Setter Name Role Phone Luba Barnes MD Primary Care Provider [phone] Reason for Referral * Imaging (Routine) - Authorized Specialty Diagnoses / Procedures Referred By Contac t Referred To Contact Radiology Diagnoses Breast pain, left Family history of breast cancer Procedures US Breast Limited Left Mel Cat PA [address] [place], [place] Phone: tel: fax: [address] Phone: tel: Referral ID Status Reason Start Date Expiration Date V isits Requested Visits Authorized [id number] Authorized 07/12/2025 07/12/2026 1 1 Reason for Visit * Imaging (Routine) - Authorized Specialty Diagnoses / Procedures Referred By Contac t Referred To Contact Radiology Diagnoses Breast pain, left Family history of breast cancer Procedures US Breast Limited Left Mel Cat PA [address] [place], [place] Phone: tel: fax: [address] Phone: tel: Referral ID Status Reason Start Date Expiration Date V isits Requested Visits Authorized [id number] Authorized 07/12/2025 07/12/2026 1 1 Encounter Details Date Type Department Care Team (Latest Contact Info) Description 11/22/2025 1:41 PM EST - 11/22/2025 11:59 PM EST Hospital Encounter Radiology Department - [address] [address] Breast pain, left; Family history of breast [...] this encounter Medications at Time of Discharge .04/30, 28, 1.5 mg-30 mcg (21)/75 mg (7) [...] AM EST Office Visit Orthopedic Surgery - [place] [address] [address] Shamir Doshi DPM [address] [address] 01/13/2026 9:00 AM EST Consult [facility] [address] [phone] Deshawn Sanchez MD 175 [place] [address] 02/01/2026 3:00 PM EST Consult Bariatric Surgery - [place] 175 [facility] [address] [place] [address] Tono Comer MD [address] [place] [phone] documented as of this encounter Procedures Procedure Name Priority Date/Time Associated Diagnosis Comments US BREAST LIMITED LEFT Routine 11/22/2025 2:16 PM EST Breast pain, left Family history of breast cancer documented in this encounter Results * US Breast Limited Left (11/22/2025 2:16 PM EST) Anatomical Region Laterality Modality Breast Left Ultrasound 11/22/2025 2:07 PM EST Impressions 11/22/2025 2:29 [...] Signed Date: 11/22/2025 14:29 ET Workstation ID: [id number] Transcribed By: Self Edit Transcribed Date: 11/22/2025 [...] for left breast palpable abnormality in a 81-nlht-tseajguei COMPARISON: Baseline Technique: Bilateral CC and MLO [...] Signed Date: 11/22/2025 14:29 ET Workstation ID: [id number] Transcribed By: Self Edit Transcribed Date: 11/22/2025 14:27 ET us Mel GARCIA IMG US PROCEDURES Final Resu lt documented in this encounter Visit Diagnoses Diagnosis Breast pain, left Family history of breast cancer Family history of malignant neoplasm of breast documented in this encounter Additional Health Concerns Assessment Noted Time PHQ-9 Depression Total Score: 0 01/29/20 8:21 AM EST documented as of this encounter Care Teams Brush Machine Setter Relationship Specialty Start Date End Date Luba Barnes MD [address] [place] [address] PCP - General Internal Medicine 02/03/25 documented as of this encounter
--- OUTSIDE RECORDS SUMMARY | 2025-11-23 08:21 | XMS_ITS | Encounter Summary ---
Author Organization [facility] Address [address] [place] [address] Care Team Providers Care Line Up Examiner Name Role Phone Luba Barnes MD Primary Care Provider [phone] Reason for Visit * Reason Onset Date Comments Appointment 09/23/2025 Lmtcb on voice m ail , please transfer call to ext : [phone] thanks. BANUELOS Encounter Details Date Type Department Care Team (Late st Contact Info) Description 09/23/2025 Results Follow-Up Internal Medicine - [address] [address] Dario Crain NP [address] [place] [address] Social History Tobacco Use Types Packs/Day Years [...] AM EST Office Visit Orthopedic Surgery - [place] [address] 175 [facility] [address] [place] [address] Shamir Doshi DPM 175 [facility] [address] [place], [place] [phone] 01/13/2026 9:00 AM EST Consult [facility] [place] [facility] [place] 175 [facility] [address] [place] [address] Deshawn Sanchez MD 175 [place], [place] [phone] 02/01/2026 3:00 PM EST Consult Bariatric Surgery - [place] 175 [facility] [address] [place] [address] Tono Comer MD [address] [place] [phone] documented as of this encounter Visit Diagnoses Not on filedocumented in this encounter Additional Health Concerns Assessment Noted Time PHQ-9 Depression Total Score: 0 01/29/20 8:21 AM EST documented as of this encounter Care Teams Line Up Examiner Relationship Specialty Start Date End Date Luba Barnes MD [address] [place] [phone] PCP - General Internal Medicine 02/03/25 documented as of this encounter
--- OUTSIDE RECORDS SUMMARY | 2025-11-23 08:22 | XMS_ITS | Clinical Summary ---
Author Organization [address] [facility] Address [address] [place] [address] Phone Care Team Providers Care Retail Supervisor Name Role Phone Luba Barnes MD Primary Care Provider [phone] Allergies Active Allergy Reactions Criticality Noted Date Comments Latex 01/29/2025 Other Reaction(s): Recurrent UTI - urinary tract infection Medications QUEtiapine (SEROquel) 25 mg tablet Take 1 tablet (25 mg total) by mouth 1 (one) time each day. 12/03/2015 Active Junel FE 1.5/30, 28, 1.5 mg-30 mcg (21)/75 mg (7) per tablet TAKE 1 TABLET BY MOUTH EVERY DAY 84 tablet 1 06/21/2025 Active Active Problems Problem Noted Date Diagnosed Date COVID-19 09/30/2024 Class 2 obesity 09/30/2024 Fatigue 06/18/2024 Multiple joint pain 06/18/2024 Tremor of both hands 06/18/2024 Obesity with body mass index 30 or greater 10/19 Overview (09/30/2024): Problem added by Discern Expert Hyperlipidemia 04/07/2018 Bipolar disorder 05/07/2011 Overview (09/30/2024): Follows with [facility]; therapist Vivian goes to therapy weekly Depression 05/07/2011 Overview (09/30/2024): 02/09/12 Was at [facility] for suicidal ideations; wants to cut herself; was seen by N; cleared by crisis 11/17/2018: most recent hospitalization was when she was 17 09/02/2019: Patient taking Seroquel 25 mg PO daily Results of Means Depression Scale (EPDS) Question #10. In the past 7 days, the thought of harming myself has occurred to me: Never EDPS Score: 13 EDPS Interpretation (Maximum Score:30): 10 or greater: Possible Depression. 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 Encounters Date Type Department Care Team Description 11/22/2025 1:41 PM EST - 11/22/2025 11:59 PM EST Hospital Encounter Radiology Department - [address] [address] Breast pain, left; Family history of breast cancer Discharge Disposition: Home or Self Care 11/22/2025 1:40 PM EST - 11/22/2025 11:59 PM EST Hospital Encounter Radiology Department - [address] [address] Breast pain, left; Family history of breast cancer Discharge Disposition: Home or Self Care 11/05/2025 Telephone [facility] - [address] [place] [address] Luba Barnes MD 09/30/2025 Telephone Internal Medicine - [address] [place], [place] [phone] Luba Barnes MD 09/23/2025 Results Follow-Up Internal Medicine - [address] [place], [place] [phone] Dario Crain NP 09/16/2025 2:30 PM EDT Ancillary Procedure [facility] - [address] [place] [address] Chest pain, unspecified type; Palpitation 09/16/2025 10:00 AM EDT Office Visit [facility] Clinic - [address] [place] [phone] John Jara PA Chronic right-sided low back pain with right-sided sciatica (Primary Dx) 09/16/2025 Telephone Internal Medicine - [address] [place] [address] Luba Barnes MD 09/14/2025 Telephone Obstetrics and Gynecology [address] [address] Ester Whitney CN 09/03/2025 Telephone Internal Medicine - [address] [place] [address] Luba Barnes MD 08/27/2025 Telephone Internal Medicine - [address] [address] Luba Barnes MD from Last 3 Months Immunizations Immunization Administration Dates Next Due DTP 1989,1989,1989 DTaP (Infanrix) 6wks to less than 7yo 08/04/1994 YHyT-IJU-SSO (Pentacel) 2mo to less than 5yo 1989 HPV, Quadrivalent 04/17/2012,03/12/2008,01/08/20 08 Hepatitis A Adult (Havrix; V aqta) 19yo and older 02/04/2008 Hepatitis B (Bvmipny-X-Tjbnb , Recombivax HB-Adult) 19yo and older 08/24/2009,07/13/2009 [...] well as borderline intellectual functioning Bipolar disorder ([facility]/HCC V2 4, [facility] V28) 05/07/2011 DX:Bipolar disorder (HCC); C OMMENT: Follows with [facility]; therapist Vivian goes to therapy weekly Depression 05/07/2011 DX:Depression; C OMMENT: 02/09/12 Was at [facility] for suicidal ideations; wants to cut herself; was seen by N; cleared by crisis Hyperlipidemia 04/07/2018 DX:Hyperlipidemi a Family History Medical History Relation Name Comments Asthma Brother Diabetes Father hyperlipidemia, htn, [place], ?inflammatory arthritis Other: Parkinsons Disease Father ar thritis Other: unknown cancer Maternal Grandfather Other: malnourished Mother shreya s Breast cancer Sister 1 Other: autism Son Daniel Colon cancer Neg Hx Ovarian cancer Neg [...] Ectopic Multiple Livin g Live Births 4 3 3 2 3 Date Outcome GA Total Labor Labor/2nd/3rd Weight Sex Type Anes PTL Dionna A1 A5 Name Clin Term 016 Term 40w 0d 3147 g (111 oz) M Vag-S pont Epidur al Livin g Complications:Hypertension Delivery Location:[facility] Comments:System Genera sandro. Please review and update details. 020 Term 39w 2d F Vag-S pont Livin g [place] [place] Filed Vital Signs Vital Sign Reading [...] AM EST Office Visit Orthopedic Surgery - [address] [phone] Shamir Doshi DPM [address] [address] 01/13/2026 9:00 AM EST Consult [facility] [address] [phone] Deshawn Sanchez MD 175 [place] [address] 02/01/2026 3:00 PM EST Consult Bariatric Surgery - [place] [address] [place] [address] Tono Comer MD [facility] [place] [address] Health Maintenance Due Date Last Done Comments Hepatitis C Screening 11/03/2022 COVID-19 Vaccine ( season) 2025 Influenza Vaccine (#1) 2025 , 11/30/2015, 02/04/2008 Hypertension/CHF/CAD Annual BMP Blood Test 11/22/2025 10/22/2024, 11/21/2018 HIV Screening 12/02/2025 Postponed from 11/03/2022 (Patient [...] pain, left Family history of breast cancer MG MAMMO DIGITAL DIAGNOSTIC W MILTON BILAT Routine 11/22/2025 2:03 PM EST Breast pain, left Family history of breast cancer CARDIAC HOLTER MONITOR (REPORT GENERATED IN HOUSE) Routine 09/16/2025 2:17 PM EDT Chest pain, unspecified type Palpitation HPV WITH REFLEX GENOTYPE Routine 01/29/2025 10:02 AM EST Encounter for annual physical examination excluding gynecological examination in a patient older than 17 years COMPREHENSIVE METABOLIC PANEL Routine 10/22/2024 5:01 PM EST Pain in joint, multiple sites Fatigue Screening examination for pulmonary tuberculosis LIPID PANEL WITH REFLEX TO DIRECT LDL Routine 10/22/2024 5:01 PM EST Pain in joint, multiple sites Fatigue Screening examination for pulmonary tuberculosis from Last 3 Months or Most Recently Relevant to Health Maintenance Results * US Breast Limited Left (11/22/2025 [...] Signed Date: 11/22/2025 14:29 ET Workstation ID: [id number] Transcribed By: Self Edit Transcribed Date: 11/22/2025 [...] for left breast palpable abnormality in a 31-pnjk-enldqfrgc COMPARISON: Baseline Technique: Bilateral CC and MLO [...] Signed Date: 11/22/2025 14:29 ET Workstation ID: [id number] Transcribed By: Self Edit Transcribed Date: 11/22/2025 14:27 ET us Mel GARCIA IMG US PROCEDURES Final Resu lt * MG Mammo Digital Diagnostic w [place] [...] Signed Date: 11/22/2025 14:29 ET Workstation ID: [id number] Transcribed By: Self Edit Transcribed Date: 11/22/2025 [...] for left breast palpable abnormality in a 85-obxt-wdsonftqs COMPARISON: Baseline Technique: Bilateral CC and MLO [...] Signed Date: 11/22/2025 14:29 ET Workstation ID: [id number] Transcribed By: Self Edit Transcribed Date: 11/22/2025 14:27 ET us Mel GARCIA IMG BI PROCEDURES Final Resu lt * CARDIAC HOLTER MONITOR (REPORT GENERATED IN HOUSE) (09/16/2025 2:17 PM EDT) Anatomical Region Laterality Modality Cardiac Diagnost ic Narrative 09/22/2025 2:30 PM EDT [facility] DIAGNOSTIC TESTING DEPARTMENT [address] [place] [address], [address] [address] TEL: FAX: Type of test: 24 hour Holter Monitor Date of test: 09/16/25 Ordering provider: Dario Crain NP Reason for Test: Palpitations [facility] Ceo & Founder Findings: 1: The predominant rhythm was Normal [...] were correlated to sinus rhythm. Dario Crain MANUFACTURING SCHEDULER CV CARDIAC SERVICES PROCEDURES Final Result * HPV with reflex genotype (01/29/2025 10:02 AM EST) Pathologist [facility] HPV Negative Negative LAB MICROBIOLOGY METHOD 02/01/2025 1:17 PM [facility] Brushing Cervix uteri structure / Unknown 01/29/2025 10:02 AM EST 02/01/2025 6:09 AM EST Martell STALLINGS LAB MOLECULAR DIAGNOSTICS ORD ERABLES Final Result [facility] [address] [place] [address], * (ABNORMAL) Lipid panel with reflex to direct LDL (10/22/2024 5:01 PM EST) Cholesterol 225(H) 0 - 200 mg/dL LAB CHEMISTRY METHOD 10/22/2024 6:19 PM [facility] Triglycerides 192(H) 0 - 150 mg/dL LAB CHEMISTRY METHOD 10/22/2024 6:19 PM [facility] HDL 46 >=40 mg/dL LAB CHEMISTRY METHOD 10/22/2024 6:19 PM [facility] LDL Calculated 141(H) 0 - 100 mg/dL LAB CHEMISTRY METHOD 10/22/2024 6:19 PM [facility] VLDL Cholesterol Fernando 38.4 mg/dL LAB CHEMISTRY METHOD 10/22/2024 6:19 PM EST [facility] Non HDL Chol. (LDL+VLDL) 179(H) <145 mg/dL LAB CHEMISTRY METHOD 10/22/2024 6:19 PM [facility] Chol/HDL Ratio 4.9(H) 0.0 - 4.4 LAB CHEMISTRY METHOD 10/22/2024 6:19 PM [facility] Blood Venous blood specimen / Unknown Venipuncture / Unknown 10/22/2024 5:01 PM EST 10/22/2024 5:01 PM EST us Audra Nuñez MD LAB BLOOD ORDERABLES Final Result [facility] [address] [place] [address], [place] [phone] * Comprehensive metabolic panel (10/22/2024 5:01 PM EST) Sodium 140 133 - 145 mmol/L LAB CHEMISTRY METHOD 10/22/2024 6:19 PM [facility] Potassium 4.0 3.5 - 5.5 mmol/L LAB CHEMISTRY METHOD 10/22/2024 6:19 PM [facility] Chloride 107 96 - 110 mmol/L LAB CHEMISTRY METHOD 10/22/2024 6:19 PM [facility] CO2 26 21 - 32 mmol/L LAB CHEMISTRY METHOD 10/22/2024 6:19 PM [facility] Anion Gap 7 3 - 11 LAB CHEMISTRY METHOD 10/22/2024 6:19 PM [facility] Glucose 94 70 - 100 mg/dL LAB CHEMISTRY METHOD 10/22/2024 6:19 PM [facility] BUN 11 5 - 25 mg/dL LAB CHEMISTRY METHOD 10/22/2024 6:19 PM [facility] Creatinine 0.82 0.50 - 1.10 mg/dL LAB CHEMISTRY METHOD 10/22/2024 6:19 PM [facility] eGFR 96 >=60 mL/min/1. 73m2 LAB CHEMISTRY METHOD 10/22/2024 6:19 PM [facility] Comment:Calculation based on the Chronic Kidney Disease Epidemiology Collaboration (CKD-EPI) equation refit without adjustment for race. BUN/Creatinine Ratio 13.4 LAB CHEMISTRY METHOD 10/22/2024 6:19 PM [facility] Calcium 9.8 8.5 - 10.5 mg/dL LAB CHEMISTRY METHOD 10/22/2024 6:19 PM [facility] AST (SGOT) 30 10 - 42 unit/L LAB CHEMISTRY METHOD 10/22/2024 6:19 PM [facility] ALT (SGPT) 59 10 - 60 unit/L LAB CHEMISTRY METHOD 10/22/2024 6:19 PM [facility] Alkaline Phosphatase 76 42 - 121 unit/L LAB CHEMISTRY METHOD 10/22/2024 6:19 PM [facility] Total Protein 6.8 6.0 - 8.0 g/dL LAB CHEMISTRY METHOD 10/22/2024 6:19 PM [facility] Albumin 3.8 3.2 - 5.0 g/dL LAB CHEMISTRY METHOD 10/22/2024 6:19 PM [facility] Total Bilirubin 0.4 0.0 - 1.4 mg/dL LAB CHEMISTRY METHOD 10/22/2024 6:19 PM [facility] Blood Venous blood specimen / Unknown Venipuncture / Unknown 10/22/2024 5:01 PM EST 10/22/2024 5:01 PM EST us Audra Nuñez MD LAB BLOOD ORDERABLES Final Result [facility] [address] [place] [address], [place] [phone] from Last 3 Months or Most Recently Relevant to Health Maintenance Insurance [facility] Care Teams Retail Supervisor Relationship Specialty Start Date End Date Luba Barnes MD [address] [place] [address] PCP - General Internal Medicine 02/03/25
--- OUTSIDE RECORDS SUMMARY | 2025-11-23 08:22 | XMS_ITS | Data Portability ---
Author Organization [facility], ROSSY Watson PT Address [address] [place] [address] Care Team Providers Care Non Destructive Testing Specialist Name Role Phone [facility] ADULT MEDICINE Primary Care Provi esther Assessment [...] jesus patellae Teach HEP 2024 025 [email or web address] [facility], [address] [place], [address], 5 20:33:15 Procedures None recorded. Surgeries None recorded. Imaging MRI, knee, w/o contrast - R knee mri. ?LMT 2024 025 [facility] ([facility]), [address], [place], [address], 5 16:35:29 XR, knee, 4 or more view - 4v R knee. room 3 2024 025 [facility], [address], [place], [address], 5 14:21:44 Medication Orders None recorded. Patient [...] a4ajBk vP9nXo QUaueC m3YtLR FvZlgJ JJ8mAn HZtai3 3q0147 AC0Klb 36MUKO iKiQtr MwF INTERFACE [facility] [address], [place], [address], 07/22/2025 13:40:22 07/22/20 25 07/22/2025 XR, knee, 4 or more view http:/ [email or web address] ?Encry pted=s hAaTro YD8dLq bEUv6g %2BXZw aYqtaq 0bqfl% 2Fg9IQ a4ajBk vP9nXo QUaueC m3YtLR FvZl JJ8mAn HZtai3 9a1870 AC0Klb 36MUKO iKiQtr MwF INTERFACE [facility] [address] [facility] [address], [place], [address], 07/22/2025 13:40:23 07/28/20 25 07/27/2025 MRI, knee, w/o contr ast [facility] Access ion Number : [id number] Edw[address] clayton Name: Renée Marcha anel Record Number : [id number] Date of : 1989 Date of Exam: 2024 Referr ing Physic yunier: [facility] [address], [address] [place] [address] Exam: MR Knee (C-) CPT 03226 - Right Room Descri ption: Bartelso Siem Verio 3.0T Histor y: Fell out [...] Signed By: Conrado Kaur rd, MD [email or web address] [facility] ([facility]) [address], [place], [address], 07/29/2025 08:36:28 Result Notes Documentation Provider Name and Address Organization Details Recorded Time Xr, Knee, 4 Or More View : [email or web address] Encrypted=avUjNtjFG2yKaiM Uv6g%7QOJigArkim8jord%2Fg 9TQd3jpJccW1jWiKMjagCb8Vo JTAlYikXPN8nJhCWksj60i848 2QB8Fjd10EFRDwUiRqxXaL Not Available [facility] 07/22/2025 13:40:22 Xr, Knee, 4 Or More View : [email or web address] Encrypted=wmRdLgcME2pCpxL Uv6g%1OBUutJkuqy6xfya%2Fg 8VFr3qrWqhX1zZrUKsajNt2Ud MYAdLbrJJY6bNzRSyex12u007 1XH1Qhg28HZPHgDzAalYaJ Not Available [facility] 07/22/2025 13:40:23 Mri, Knee, W/o Contrast : [facility] Accession Number: [id number] Patient Name: Avelina March Date of : 1990 Date of Exam: 07-27-2025 Referring Physician: Jorje Magana [facility] ([facility]) [address] [place] [address], [address] [place] [address] Exam: MR Knee (C-) CPT 30429 - Right Room Description: [facility] 3.0T History: Fell out of chair [...] Electronically Signed By: Conrado Magana PA-C [address] [facility] [address], [place], [address], [facility] 07/29/2025 08:36:28 Medical Equipment None [...] Updated DateTime 07/22/2025 167.64 cm 31.2 kg/m2 76032.33 g Lise Rowland [facility] 07/22/2025 13:26:44 Date Recorded Body height Body mass index (BMI) Body weight Provider Name and Address Organization Details Last Updated DateTime 07/30/2025 167.64 cm 31.2 kg/m2 47507.33 g Lise Gill [place] [facility] 07/30/2025 09:06:30 Social History None [...] ICD10 Code Diagnosis IMO Codes Diagnosis Note [id number] LUIS M [facility] [address] [place] [address] 07/22/2025 13:15:34 07/29/2025 11:24:08 Pain of right knee joint [id number] 18552 M25.561 062031 Derangemen t of right knee 4757611520 [id number] M23.91 [id number] LUIS M [facility] [address] [place] [address] 07/30/2025 08:57:20 08/11/2025 12:06:09 Chondromalacia of right patella [id number] M22.41 [id number] Health Concerns Section Related Observation LastModified by Organization Detai ls LastModified Time None Recorded Concern Status LastModified by Organization Details LastModified Time None Recorded Advance Directives Directive None Recorded Payers Insurance Date Sequence Insurance Name Policy Number Policy Jaquez Covered Member ID Jaquez Member ID Guarantor Name 08/11/2025 1 [facility] (MEDICAID HMO) LUDWIN Avelina March [id number] Avelina March Notes Date Note Type Note [...] extend the knee. She was seen at [facility], which gave her crutches and she is [...] were ordered, obtained and reviewed today at [facility]. 3 views of the knee were [...] discuss MRI results. Jorje Magana PA-C [address] [facility] [address], [place], [address], [facility] - [facility] 07/22/2025 14:21:11 07/30/2025 text/html [...] us as needed. Jorje Magana PA-C [address] [facility] [address], [place], [address], [place] - [facility] 07/30/2025 09:16:22 OBGyn Episode No OBEpisode recorded.
--- NOTE | 2025-11-23 08:27 | A.OFFPC_ITS ---
Vital Signs 11/23/25 08:30 Height 5 ft 4 in Weight 93.157 kg BMI 35.2 BP 104/70 Blood Pressure Location Lt brachial Respiration 14 Pulse 87 Pulse Source Pulse Oximeter Temp 97.2 F Temp Source Temporal Artery Scan Pulse Oximetry (%) 98 Oxygen Delivery Method Room Air Intake Visit Reasons: ED F/U Power Tong Operator Required: No Accompanied by: Self / Same As Patient Allergies No Known Allergies Allergy (Verified 11/23/25 08:28) Medication List - Last Reconciled 11/23/25 by RADHA Britt quetiapine 25 mg PO BEDTIME sertraline 50 mg PO DAILY Tobacco use date assessed: 09/29/25 Dental Screening Dental Screen Date: 09/29/25 HPI HPI Comments History of Present Illness Details 35-year-old female with history of bipol ar disorder and PTSD presents to the office today for post ER evaluation. Presented to [facility] on 11/15. On review of ED provider's note, she had been complaining of left-sided chest pain ongoing for several months but had felt different as it radiated into the lower part of the chest. There were associated symptoms of dyspnea. Has family history of cardiovascular disease in her father who passed at age 65. Per report, pain worsened with exertion. There were no focal deficits reported by the patient. There was no radiation into the arms, her back, jaw. No illicit drug use including cocaine. No history of DVT, PE, unilateral leg swelling, recent travel or exogenous hormone use. She had started a new job working overnight about 3 weeks ago and had developed a twitching sensation. Had fallen asleep at work that evening and again had twitching sensation but was not conscious during this sensation. No history of seizures. In prior visits with me, she did endorse that twitching sensations often preceded dissociated episodes that had been occurring intermittently over several weeks. She did tell me that she has been working closely with her psychiatrist as well as her therapist and feels these symptoms are improving. She did also meet with crisis on several occasions it did not require any hospitalization. She is currently on sertraline 50 mg daily and quetiapine 25 mg nightly. She was offered crisis while in the ED but she declined per provider report. While in the ED, vital signs were stable. Hematology and chemistry labs unremarkable. EKG showed normal sinus rhythm, rate [address]-T segment changes. Chest x-ray performed was negative for any acute cardiopulmonary disease. There were no significant or life-threatening abnormalities in workup. It was thought that the lack of sleep could be related to the pain and the tingling sensation with the dissociate of episodes. She has also been experiencing palpitations for several months. In the office today her main concern is the sharp chest pain that she has been experiencing in the upper left chest radiating into the lower breast. This is has been ongoing for about several months. No injury. Initially was intermittent until about 2 months ago when pain became more constant. Unable to identify any exacerbating or alleviating factors. Denies any injury. There is no other radiation into the shoulder, arm, back, jaw. Denies any retrosternal pressure. She has been trying to exercise and reports cardiovascular activity does worsen the pain. Rates this as an 8.5/10 at its worst to the point where she needs to hold her chest while at work. The pain is not positional. She does have family history of breast cancer in her sister at age 43. Just underwent mammogram as well as ultrasound but results are not yet available, we will request. Bipolar disorder-reports is improving. Dissociations appear to be under control. Started on sertraline 50 mg and continues on quetiapine at bedtime. Continues working with her therapist and psychiatrist ROS: see hpi EXAM: Constitutional - Awake and Alert, No apparent distress Eyes - PERRL Cardiovascular - S1S2, RRR, No edema Respiratory - Normal lung expansion, Normal respiratory effort, No respiratory distress, CTA bilaterally Breast- L breast. Breast exam performed with circular pattern covering entire breast tissue with medium pressure applied. Breast tissue normal without any discrete masses or nodules. Breasts are symmetric. There are no nipple inversions or discharges. No overlying skin changes including potty orange. No lymphadenopathy palpated. Endorses ttp fror about 10oclock to 6oclock without any palpable abnormality. 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 Extremities - no calf tenderness bilaterally, no swelling Skin - Warm/Dry Neurological - Alert & oriented x3 Psychological - Appropriate affect [facility] Medical History Breast pain Chest pain Vitamin D deficiency HLD (hyperlipidemia) HTN (hypertension) D-dimer, elevated PTSD (post-traumatic stress disorder) Bipolar disorder Surgical History No pertinent past surgical history Family History Father Colon cancer, Onset Age: 65 Heart disease Sister Breast cancer, Onset Age: 43 Social History Housing: House Patient Tobacco Use Status: Never used Tobacco e-Cigarette/Vaping Use: Never Used service: No Current occupational status: employed Current occupation: [employer] living Physical exam (Primary Care) Vital Signs: Last Vital Signs Temp 97.2 F 11/23/25 08:30 Pulse 87 11/23/25 08:30 Resp 14 11/23/25 08:30 BP 104/70 11/23/25 08:30 Pulse Ox 98 11/23/25 08:30 Oxygen Delivery Method Room Air 11/23/25 08:30 BMI result Body Mass Index 35.2 Tobacco/Smoking Status: Tobacco use Status Tobacco use date assessed 09/29/25 11/23/25 08:31 Patient Tobacco Use Status Never used Tobacco 11/23/25 08:31 e-Cigarette/Vaping Use Never Used 11/23/25 08:31 Office Procedures EKG Details: Sinus arrhythmia, rate 81. Some difference in P wave morphology, but no significant differences. QRS appropriate. No ST/T-wave abnormality [id number], Complete Coding Level of Care Code Est Pt Level 5 (52303) Add On Problem Visit Only Diagnoses PTSD (post-traumatic stress disorder) F43.10 Bipolar disorder F31.9 Atypical chest pain R07.89 Breast pain N64.4 CPT Codes EKG - CPT: 38536-[id number], Complete ([id number]) Time Spent (min) 50 Assessment & Plan Assessment & Plan (1) PTSD (post-traumatic stress disorder): Code(s): F43.10 - Post-traumatic stress disorder, unspecified Category: Medical Plan: Per patient report, dissociated episodes have improved. Advised to continue working with therapist and psychiatrist to continue managing mood and ongoing prevention of dissociated episodes. Also should be working with Psychiatry regarding sleep which could be triggering symptoms such as twisting, less likely related to the chest pain which has been ongoing for over 7 months. (2) Bipolar disorder: Code(s): F31.9 - Bipolar disorder, unspecified Category: Medical Plan: Per patient report, dissociative episodes have improved. Advised to continue working with therapist and psychiatrist to continue managing mood and ongoing prevention of dissociated episodes. Also should be working with Psychiatry regarding sleep which could be triggering symptoms such as twisting, less likely related to the chest pain which has been ongoing for over 7 months. Continue sertraline 50 mg daily and quetiapine 25 mg nightly. No alarm symptoms at this time (3) Atypical chest pain: Code(s): R07.89 - Other chest pain Category: Medical Plan: Etiology unclear. Chest x-rays have been within normal limits. EKG shows sinus arrythmia, possibly r/t respiration, though could be PACs. Patient does experience palpitations. Will check Holter monitor as well as echocardiogram given persistence of symptoms. Check inflammatory markers as well as troponin (4) Breast pain: Code(s): N64.4 - Mastodynia Category: Medical Plan: We will request records from [facility] regarding patient's mammogram and ultrasound. Given family history of breast cancer in her sister at age 43, MRI of the breast is ordered. She will continue to follow with digital community manager Plan Follow-up in the office as scheduled, sooner if needed. Orders: Orders MR breast BI wo/w con Today Z80.3 - Family history of malignant neoplasm of breast Erythrocyte Sedimentation Rate Today R07.9 - Chest pain, unspecified C Reactive Protein Today R07.9 - Chest pain, unspecified TSH reflex Free T4 Today R07.9 - Chest pain, unspecified CA echo transthoracic complete Today R00.2 - Palpitations, R07.9 - Chest pain, unspecified AMB EKG-In Office Today R07.89 - Other chest pain, Z13.6 - Encounter for screening for cardiovascular disorders Troponin-I High Sensitivity Today R07.9 - Chest pain, unspecified ECG 3 day holter monitor Today R00.2 - Palpitations, R07.9 - Chest pain, unspecified
[2025-11-23 08:30] VITALS: BP 104/70; PULSE 87; RESP 14; TEMP 36.2; O2SAT 98; BMI 35.2
== END 2025-11-23 09:23 | disposition home or self-care (01) ==
LOC: HO.HMCHD 08:19
PROVIDERS: PCP Physician Assistant; Visit Provider Physician Assistant
DX: F43.10 Post-traumatic stress disorder, unspecified (principal); F31.9 Bipolar disorder, unspecified; R07.89 Other chest pain; N64.4 Mastodynia

== ENCOUNTER → 2025-11-23 08:18 | Outpatient (BNVA) | payer OTHER, SELFPAY | PROVIDERS: PCP Physician Assistant; Visit Provider Physician Assistant | DX: F43.10 Post-traumatic stress disorder, unspecified (principal); F31.9 Bipolar disorder, unspecified; R07.89 Other chest pain; N64.4 Mastodynia | CPT/HCPCS: 93005; 99212 ==